=== PATIENT | male | born 1965 | race Caucasian/White ===

== ENCOUNTER 2021-03-10 22:45 | Inpatient (IN) | payer MEDICAID, SELFPAY ==
[2021-03-10 23:00] VITALS: BP 162/89; PULSE 77; RESP 20; TEMP 36.5; O2SAT 95
[2021-03-10 23:46] VITALS: BMI 32.3
[2021-03-11 01:26] LABS: Bedside Glucose 167 mg/dL (70-110)
[2021-03-11] MEDS: OXcarbazepine 600 MG Tablet PO ×3 (05:33→22:22)
[2021-03-11 05:43] LABS: Absolute Lymphocyte Count 1.53 X10^3/uL (0.83-4.51); Absolute Neutrophil Count 7.4 X10^3/uL (2.0-7.7); Basophil% 0.9 % (0-1); Eosinophil# 1.01 X10^3/uL; Eosinophils% 9.3 % (0-5); Hematocrit 41.5 % (40-54); Hemoglobin 13.5 g/dL (13.0-16.5); Lymphocyte # 1.53 X10^3/ul (0.83-4.51); Mean Corp Hgb Conc 32.5 g/dL (32-36); Mean Corpuscular Hgb 30.2 pg (27.0-32.0); Mean Corpuscular Volume 92.8 fL (80-94); Mean Platelet Vol. 9.7 fl (6.2-12.0); Monocyte# 0.85 X10^3/uL; Monocyte% 7.8 % (0-10); NRBC Flagged by Analyzer 0 % (0-5); Neutrophil # 7.37 X10^3/uL (2.7-7.7); Neutrophil % 67.7 % (47-70); Platelet Count 242 K/mm3 (150-450); RBC Distribution Width CV 12.8 % (11.6-14.6); RBC Distribution Width SD 43.5 fl (35.1-43.9); Red Blood Count 4.47 M/mm3 (4.6-6.2); White Blood Count 10.9 K/mm3 (4.4-11.0)
[2021-03-11 06:15] LABS: ALB/GLOB Ratio 0.9 RATIO (0.9-2.4); AST(SGOT) 12 U/L (15-37); Alanine Aminotransfer ALT/SGPT 27 U/L (16-61); Albumin, Serum 3.3 g/dL (3.2-5.0); Alkaline Phosphatase 107 U/L (45-117); Anion Gap 4 (5-15); BUN 16 mg/dL (7-18); BUN/Creat Ratio 15.7 RATIO (10-20); Calcium,Total 8.7 mg/dL (8.5-10.1); Chloride 107 mmol/L (98-107); Creatinine, Serum 1.02 mg/dL (0.70-1.30); EST Glomerular Filtration Rate 80 mL/min (>60); Est Glom Filt Rate - Afr Amer 97 mL/min (>60); Estimated Creatinine Clearance 86.13 ml/min; Globulin 3.6 g/dL (2.2-4.2); Glucose 205 mg/dL (74-106); Magnesium 2.3 mg/dL (1.6-2.6); Phosphorus 3.4 mg/dL (2.5-4.9); Potassium 3.6 mmol/L (3.5-5.1); Protein, Total 6.9 g/dL (6.4-8.2); Sodium Level 137 mmol/L (136-145)
[2021-03-11 06:30] LABS: Bedside Glucose 204 mg/dL (70-110)
[2021-03-11 07:50] VITALS: BP 151/75; PULSE 76; RESP 16; TEMP 36.2; O2SAT 94
[2021-03-11] MEDS: Clobetasol Propionate 0.05% Cream 1 APPLIC TOPICAL ×2 (08:07→22:30)
[2021-03-11 08:08] VITALS: BP 151/75; PULSE 76
[2021-03-11 08:08] LABS: Hemoglobin A1c 7.4 % (3.8-5.6)
[2021-03-11] MEDS: Glimepiride 4 MG Tablet 8 MG PO (08:08)
[2021-03-11] MEDS: amLODIPine 10 MG Tablet PO (08:08)
[2021-03-11] MEDS: lamoTRIgine 100 MG Tablet PO ×2 (08:08→22:23)
[2021-03-11] MEDS: Pioglitazone Hydrochloride 30 MG Tablet PO (08:08)
[2021-03-11] MEDS: Senna/Docusate Sodium 1 Tablet 2 TABLET PO ×2 (08:08→22:22)
[2021-03-11] MEDS: metFORMIN HCl 1,000 MG Tablet 1000 MG PO ×2 (08:08→16:33)
[2021-03-11] MEDS: Aspirin 81 MG TAB.CHEW PO (08:08)
[2021-03-11] MEDS: Lisinopril 40 MG Tablet PO (08:08)
[2021-03-11] MEDS: Metoprolol Tartrate 25 MG Tablet PO ×2 (08:08→22:23)
[2021-03-11] MEDS: Clopidogrel Bisulfate 75 MG Tablet PO (08:11)
[2021-03-11] MEDS: Gabapentin 600 MG Tablet PO ×2 (08:11→22:23)
[2021-03-11] MEDS: Tamsulosin HCl 0.4 MG Capsule PO (08:12)
--- NOTE | 2021-03-11 09:49 | HP.PCM_ITS ---
HPI - General General Date of Admission: 03/10/21 HPI Narrative CLARICE RIVER, is a 56 YO M with a PMH of CVA, HTN, DM II, carotid stenosis, obesity, BPH, dyslipidemia and seizures who was scheduled for a routine follow up CTB and neck on 03/07/21. He presented to the hospital in his normal state of health, checked in and then went to sit and wait to be called. Staff found him slumped over in a chair. He was taken to the ED and was noted to have left gaze preference, R right hemiparesis and aphasia. The initial NIHSS score was 21. A noncontrasted CT brain showed old areas of encephalomalacia in the left hemisphere. CTA of the head and neck showed a loss of parikh?white differentiation in the left posterior frontal lobe consistent with a known left MCA occlusion. He was given TPA. He had a CTP which showed left MCA distribution ischemia with ischemic penumbra involving the left frontal and parietal lobes but sparing the majority of the left temporal lobe. There was no core infarct. Thrombectomy was attempted but, there was no thrombus present. 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 He had a good result with TPA and the post TPA NIHSS was 9. He has some mild weakness on the right side but, the primary deficit is persistent severe dysarthria and aphasia. He was evaluated by PT/OT/ST and acute inpt rehab was recommended. He was transferred to the inpt acute rehab unit at [facility] on 03/10/21 for 3 hours of therapy daily to restore function/independence at or near his prior level of function. He follows with a Dr. Chandra for diabetes management. He finally got insulin but, has not been taking it because he has no syringes. He is also on 3 oral medications including high dose Metformin, pioglitazone and Amaryl. Afebrile VSS-blood pressure has ranged from 151/75-162/89 since admission. Heart rate is within normal limits. Maintaining appropriate oxygen saturation on RA-94 to 95% Discussed with nursing - no problems that need addressed Medication list reviewed. All lab was personally reviewed. CBC is significant for an increased eosinophil count at 9.3%. Hemoglobin A1c is 7.4%. [facility] Medical History (Updated 03/11/21 @ 20:[address] Joanna Her DO) BPH (benign prostatic hyperplasia) Carotid stenosis, right COPD exacerbation Dyslipidemia History of CVA (cerebrovascular accident) History of seizure HTN (hypertension) Obesity (BMI 30.0-34.9) Physical debility Tobacco dependence Type 2 diabetes mellitus not at goal Home Medications albuterol sulfate [Proventil HFA] 2 puff INHALATION Q4H PRN PRN 03/11/21 [History Last Taken Unknown] albuterol sulfate [Proventil] 2.5 mg INHALATION Q6H PRN 03/11/21 [History Last Taken Unknown] amlodipine 10 mg PO DAILY 03/11/21 [History Last Taken Unknown] aspirin 81 mg PO DAILY 03/11/21 [History Last Taken Unknown] atorvastatin 40 mg PO QHS 03/11/21 [History Last Taken Unknown] clobetasol [Temovate] 1 applic TOPICAL BID 03/11/21 [History Last Taken Unknown] clonidine 1 patch TRANSDERMAL QWEEK 03/11/21 [History Last Taken Unknown] clopidogrel 75 mg PO DAILY 03/11/21 [History Last Taken Unknown] cyclobenzaprine [Flexeril] 5 mg PO QHS PRN 03/11/21 [History Last Taken Unknown] gabapentin 600 mg PO BID 03/11/21 [History Last Taken Unknown] glimepiride 8 mg PO BREAKFAST 03/11/21 [History Last Taken Unknown] insulin glargine 30 unit SUBCUT DAILY 03/11/21 [History Last Taken Unknown] lamotrigine 100 mg PO BID 03/11/21 [History Last Taken Unknown] lisinopril 40 mg PO DAILY 03/11/21 [History Last Taken Unknown] metformin 1,000 mg PO BIDCM 03/11/21 [History Last Taken Unknown] metoprolol tartrate 25 mg PO BID 03/11/21 [History Last Taken Unknown] nicotine 1 patch TRANSDERMAL DAILY 03/11/21 [History Last Taken Unknown] oxcarbazepine [Trileptal] 600 mg PO TID 03/11/21 [History Last Taken Unknown] pioglitazone [Actos] 30 mg PO DAILY 03/11/21 [History Last Taken Unknown] tamsulosin [Flomax] 0.4 mg PO DAILY 03/11/21 [History Last Taken Unknown] Allergy/AdvReac Type Severity Reaction Status Date / Time Penicillins Allergy Rash Verified 03/10/21 23:56 Family History (Updated 03/11/21 @ 20:[address] Joanna Her DO) Mother , Lung CA Cancer Brother Suicide Other CAD (coronary artery disease) CVA (cerebral vascular accident) Diabetes Heart disease Hypertension Myocardial infarction Family History no significant family his Social History (Updated 03/11/21 @ 20:[address] Joanna Her DO) household members: none current occupational status: disabled Smoking Status: Heavy Smoker (>10/day) Tobacco: How many years used: 43 how long ago did patient quit smoking: He did not quit and he smokes 3 packs/day now quit status: considering quitting ROS Constitutional Constitutional: Reports weakness; Denies anorexia, change in weight, chills, fatigue, fever(s) or night sweats Eyes Eyes: Reports blurry vision right; Denies change in vision, eye pain or loss of vision ENT HEENT: Denies abnormal hearing, dysphagia, headache(s), hearing loss, nasal congestion or sore throat Cardiovascular Cardiovascular: Denies chest pain, edema, lightheadedness, orthopnea, palpitations, paroxysmal nocturnal dyspnea or syncope Respiratory/Chest Respiratory/Chest: Reports shortness of breath with exertion and other Details: He is inactive and does not exercise and he is smoking 3 PPD of cigarettes. ; Denies cough, dyspnea, shortness of breath at rest or wheezing Gastrointestinal Gastrointestinal: Denies abdominal pain, constipation, diarrhea, dyspepsia, hematemesis, hematochezia, nausea or vomiting Genitourinary Genitourinary: Denies dysuria, hematuria, nocturia, urinary frequency, urinary hesitancy, urinary incontinence or urinary urgency Musculoskeletal Musculoskeletal: Denies back pain, joint pain, joint swelling or neck pain Integumentary Integumentary: Denies jaundice Neurologic Neurologic: Reports focal weakness, memory loss and weakness; Denies confusion, disequilibrium, dizziness, headache(s), numbness, paresthesias, radicular pain, seizure-like activity, seizures, syncope or tremor(s) Psychiatric Psychiatric: Denies anxiety, depression, homicidal ideation or suicidal ideation Endocrine Endocrinology: Denies change in body appearance, polydipsia or polyuria Hematologic/Lymphatic Hematologic/Lymphatic: Denies easy bleeding, easy bruising or lymphadenopathy Allergic/Immunologic Allergic/Immunologic: Denies rhinitis, eczemia or asthma Vital Signs Vital Signs Vital Signs: 03/10/21 23:00 03/11/21 03:54 03/11/21 07:50 Temperature 97.7 F L 97.1 F L Temperature Source Temporal Oral Pulse Rate 77 76 Respiratory Rate 20 H 16 Respiratory Effort Normal Non-Labored Respiratory Depth Normal Respiratory Pattern Normal Blood Pressure 162/89 H 151/75 H Blood Pressure Mean 113 100 Blood Pressure Source Monitor Monitor Blood Pressure Position Semi-Fowlers Semi-Fowlers Blood Pressure Location Left Arm Left Arm Pulse Ox 95 94 Oxygen Delivery Method Room Air Room Air 03/11/21 08:08 Temperature Temperature Source Pulse Rate 76 Respiratory Rate Respiratory Effort Respiratory Depth Respiratory Pattern Blood Pressure 151/75 H Blood Pressure Mean Blood Pressure Source Blood Pressure Position Blood Pressure Location Pulse Ox Oxygen Delivery Method Weight Weight: 231 lb 14.821 oz Body Mass Index (BMI) 32.3 Indicators for Scoring Admitted with or Primary Diagnosis of CVA/Stroke: Yes Hx of CVA/Stroke: Yes Modified [place] Score MRS Score at time of Evaluation: 4-Moderate/severe disability NIHSS NIHSS 1a. Level of Consciousness: Alert; keenly responsive 1b. LOC Questions: Answers BOTH questions correctly. 1c. LOC Commands: Performs both tasks correctly. 2. Best Gaze: Normal 3. Visual: No visual loss 4. Facial Palsy: Partial paralysis (total or near-total paralysis of lower face) (can not raise the R eyebrow but this is residual from the prior stroke in 2018) 5a. Left Arm: No drift; arm holds 90 (or 45) degrees for full 10 seconds 5b. Right Arm: No drift; arm holds 90 (or 45) degrees for full 10 seconds (the arm does not drift but, he has weak extension of the wrist and a weak hand grasp and decreased motor coordination) 6a. Left Leg: No drift; leg holds 30-degree position for full 5 seconds 6b. Right Leg: Drift; leg falls by the end of 5-seconds, but does not hit bed 7. Limb Ataxia: Absent 8. Sensory: Normal; no sensory loss 9. Best Language: [id number] aphasia; 10. Dysarthria: [id number] dysarthria; 11. Extinction and Inattention: No abnormality Total: 5 Stroke Questions Stroke Team Activated: No Physical Exam Const alert, oriented x3, no apparent distress and well nourished General Appearance: cooperative and well developed HEENT normocephalic, head/scalp atraumatic and moist oral mucous membranes Eyes PERRL and EOMs intact bilaterally Neck No nuchal rigidity and no carotid bruits General: trachea midline Chest Chest: symmetrical chest wall rise Resp clear to auscultation bilaterally Resp Narrative: very diminished air exchange Effort and Inspection: able to speak in complete sentences Cardio regular rate, regular rhythm, S1 normal heart sound, S2 normal heart sound, no murmurs, no rub and no gallops Cardio Narrative: no ectopy GI normal to inspection, nondistended, normoactive bowel sounds, soft to palpation, non-tender and non-distended GI Narrative: No guarding with palpation Extremity no calf tenderness and no pedal edema Extremity Narrative: No clubbing and no cyanosis Skin General Skin Exam: no breakdown Rashes: no rashes Neuro Neuro Narrative: See the NIHSS coring Psych thought process normal, cooperative and affect normal Results Lab / Micro Data Result Diagrams: 03/11/21 05:32 03/11/21 05:32 Labs: Laboratory Results - last 24 hr 03/11/21 01:22: POC Glucose 167 H 03/11/21 05:32: WBC 10.9, RBC 4.47 L, Hgb 13.5, Hct 41.5, MCV 92.8, MCH 30.2, MCHC 32.5, RDW Std Deviation 43.5, RDW Coeff of Tessa 12.8, Plt Count 242, MPV 9.7, Immature Gran % (Auto) 0.300, Neut % (Auto) 67.7, Lymph % (Auto) 14.0 L, [place] % (Auto) 7.8, Eos % (Auto) 9.3 H, Baso % (Auto) 0.9, Absolute Neuts (auto) 7.4, Absolute Lymphs (auto) 1.53, Nucleated RBC % 0 03/11/21 05:32: Sodium 137, Potassium 3.6, Chloride 107, Carbon Dioxide 26.0, Anion Gap 4 L, BUN 16, Creatinine 1.02, Estim Creat Clear Calc 86.13, Est GFR (MDRD) Af Amer 97, Est GFR (MDRD) Non-Af 80, BUN/Creatinine Ratio 15.7, Glucose 205 H, Calcium 8.7, Phosphorus 3.4, Magnesium 2.3, Total Bilirubin 0.40, AST 12 L, ALT 27, Alkaline Phosphatase 107, Total Protein 6.9, Albumin 3.3, Globulin 3.6, Albumin/Globulin Ratio 0.9 03/11/21 05:32: Hemoglobin A1c 7.4 H 03/11/21 06:11: POC Glucose 204 H Assessment & Plan Assessment/Plan (1) Physical debility: (2) Recent cerebrovascular accident (CVA): (3) Aphasia: (4) Dysarthria: (5) Right hemiparesis: (6) Tobacco dependence: (7) Obesity (BMI 30.0-34.9): (8) Carotid stenosis, right: (9) BPH (benign prostatic hyperplasia): (10) History of seizure: (11) Dyslipidemia: (12) Type 2 diabetes mellitus not at goal: (13) HTN (hypertension): (14) Low HDL (under 40): (15) Hypertriglyceridemia: (16) COPD exacerbation: PLAN: PLAN PT for gait stability OT for ADL's ST for evaluation Analgesics as needed Bowel protocol Fall precautions Assess for Anxiety/Depression GI prophylaxis not necessary-he has no history of peptic ulcers disease or GERD and he has no symptoms currently DVT prophylaxis with enoxaparin 40 mg subcu daily Follow up with neurology and PCP following DC from IP Rehab AM lab including CMP, CBC, Mag, HGA1C, lipid profile and Phos Smoking cessation counselling was given. He has a nicotine patch which he tells me is helping with the cravings. With his hx of 2 strokes now and uncontrolled DM II will consider adding Victoza LDL is < 50 which is the goal now that he has had 2 strokes He may benefit from Adult day care if it is available in his area. He is very inactive and bored so he sits around and smokes 3 PPD of cigarettes Follow up appts: Dr. Sylvia Francois MD, [facility] [phone] Charges/Coding Visit Charges Inpatient E&M: 16218 Init Hosp L3
--- NOTE | 2021-03-11 10:39 | PCM.RU.PYE ---
Admission Information Primary Diagnosis:: Debility secondary to recent left MCA ischemic CVA with dysarthria, aphasia, right-sided weakness. Status Changes from Prescreening?: No changes Identified Actual Problem List:: Cognitve Impr/Memory Loss, Mobility Impaired, Diabetes, Hyperglycemia and Alteration-Leisure Activ. Potential Problem List:: DVT, Bleeding, Infection, UTI, Aspiration, Falls, Skin Integrity and Depression Risk of Complications DVT: LMWH and IFEANYI Hose Bleeding: Monitor Lab Values, Nursing to Teach Precautions for anti-coagulation therapy., Wound, if applicable, to be assessed every shift. and Stroke patients assessed for lethargy or change in status. Infection: Clinical Staff to Monitor for S/S of infection: and S/S of infection include fever, redness, warmth, etc. Urinary Tract Infection: Monitor for frequency, burning, discomfort, or incontinence. and Nursing will obtain urine sample for urinalysis and C&S when ordered. Aspiration: Clinical staff will monitor for coughing, drooling, congestion., Speech will evaluate swallowing and dsyphasia. and Nursing will monitor patient swallowing during meals. Falls: Patient will be evaluated for Fall Precautions and Patient will be placed on Fall Precautions as indicated per protocol. Skin Breakdown: Nursing will assess skin daily using assessment tool. and Nursing will place on Skin Breakdown Precautions as indicated. Pain: Clinical staff will assess patient's pain level per protocol., Medications will be given, if needed, and the pain level reassessed. and Other methods: Massage, distraction, decrease stimulus, etc. used PRN. Plan of Care Patient requires physician specializing in physical medicine and rehab oversight to provide close medical supervision of rehab issues including: Pain Management, Sleep Problems, Bowel and Bladder, Medical and co-morbidity Management, DVT prophylaxis, Rehabilitation Leadership and Coordination of treatment team Patient needs Physical Therapy: For a minimum of 1 hour and At least 5 out of 7 days Patient needs Physical Therapy to improve:: Mobility, Strengthening, Transfers, Stretching, ROM, Endurance, Stairs, Gait and Balance Patient needs Occupational Therapy: For a minimum of 1 hour and At least 5 out of 7 days Patient needs Occupational Therapy to improve ADL's incl.: Eating, Grooming, Bathing, Dressing, Toileting, Toilet transfers, Community Reintegration, Higher functioning activities, Household tasks, Adaptive Equipment, Splinting and Other activities as determined Patient requires speech therapy: For a minimum of 1 hour and At least 5 out of 7 days Patient requires speech therapy for: Swallowing, Cognition, Language Skills and Compensatory Strategies Patient requires 24/7 Rehabilitation Nursing for: Pain Issues, Identifying and preventing risk factors, Monitoring and reporting current medical conditions, Assisting with ambulation, transfer, and all ADL's, Teaching patients about disease process and medications, Family teaching, Providing safe environment, Bowel and Bladder Issues, Skin integrity and Medication Management Patient needs Machine Operator Slitter Technician/ Case Management for: Discharge Planning, Arranging Home Equipment or Services and Family Interventions Patient needs Dietary and Nutrition Services for: Adequate Nutrition, Nutritional Supplements and Nutritional Education Goals Patient will remain: free from falls and or injury at time of discharge. Patient will perform bed mobility at: MOD I level of assist. Patient will complete transfers from bed to chair at: MOD I level of assist. Patient will ambulate: with LRD and - (300 feet with a standard cane at mod I) Patient will complete upper body dressing at: MOD I level of assist. Patient will complete lower body dressing at: MOD I level of assist. Patient will complete toileting at: MOD I level of assist. Patient will perform bathing at: - (Supervision with a shower chair and grab bars) Patient will complete grooming at: MOD I level of assist. Patient will complete home management skills at: MOD I level of assist. Patient will achieve: - (1 curb step and ascend/descend 1 flight of stairs) Patient will have pain level of: of 3 or less Patient's skin will: remain intact Patient will receive: adequate nutrition. Discharge Planning Pt Prognosis for Sig. Practical Improv. w/in Reasonable Time: Good Estimated Length of stay (days): 14 Anticipated D/C Destination: Home with Home Health Was Preadmission Assessment Accurate?: Yes
[2021-03-11 11:21] LABS: Bedside Glucose 215 mg/dL (70-110)
[2021-03-11 11:22] LABS: Cholesterol 149 mg/dL (200); High Density Lipoprotein 32 mg/dL; Triglycerides 340 mg/dL; Very Low Density Lipoprotein 68 mg/dL (5-40)
[2021-03-11] MEDS: Enoxaparin 40 MG/0.4 ML Syringe SC (12:18)
[2021-03-11 16:05] LABS: Bedside Glucose 81 mg/dL (70-110)
--- NOTE | 2021-03-11 16:10 | CASEMGMT ---
Addendum entered by Marguerite Villagomez 03/14/21 11:35: Addendum from 03/11 - completed PHQ-9. scored 14/27 - moderately depressive. Explained pt's mood further and the stroke support group. Pt reports overall, his mood is stable and has good outlook on life. Pt agreeable to be added to stroke support group mailing. Completed Palliative Care screening tool. Pt qualifies. Order entered. Referral made to [facility]. Original Note: Social Work Met with patient for initial assessment. Pt confirmed full code. Discussed completing advanced directives. Pt agreeable to LW, but will speak with brother to see if he is willing to be HCPOA. SW to complete prior to DC. Pt discussed past alcohol and criminal hx. See SW assessment for further details. Explained [employer] insurance with NRD 2/3 and continued stay is not guaranteed with each review. The goal is for pt to return home alone with services from aides. However, pt cannot recall what agency the aides are through or if he has a rn field case manager that coordinated the aides. Pt did give permission to speak with brother for discharge planning and progress updates. SW to continue to follow. Marguerite Villagomez, EMERSON GEOTHERMAL INSTALLER
[2021-03-11 19:33] VITALS: BP 160/90; PULSE 70; RESP 16; TEMP 36.6; O2SAT 95
[2021-03-11 21:31] LABS: Bedside Glucose 144 mg/dL (70-110)
[2021-03-11 22:23] VITALS: BP 160/90; PULSE 70
[2021-03-11] MEDS: Atorvastatin Calcium 40 MG Tablet PO (22:23)
[2021-03-11] MEDS: Magnesium Hydroxide 30 ML UDC PO (22:30)
[2021-03-12] MEDS: OXcarbazepine 600 MG Tablet PO ×3 (06:00→22:00)
[2021-03-12] MEDS: Aspirin 81 MG TAB.CHEW PO (08:00)
[2021-03-12] MEDS: metFORMIN HCl 1,000 MG Tablet 1000 MG PO ×2 (08:00→17:00)
[2021-03-12] MEDS: Glimepiride 4 MG Tablet 8 MG PO (08:00)
[2021-03-12 10:00] VITALS: PULSE 66
[2021-03-12] MEDS: Lisinopril 40 MG Tablet PO (10:00)
[2021-03-12] MEDS: Enoxaparin 40 MG/0.4 ML Syringe SC (10:00)
[2021-03-12] MEDS: Clobetasol Propionate 0.05% Cream 1 APPLIC TOPICAL ×2 (10:00→22:00)
[2021-03-12] MEDS: Tamsulosin HCl 0.4 MG Capsule PO (10:00)
[2021-03-12] MEDS: amLODIPine 10 MG Tablet PO (10:00)
[2021-03-12] MEDS: Gabapentin 600 MG Tablet PO ×2 (10:00)
[2021-03-12] MEDS: Clopidogrel Bisulfate 75 MG Tablet PO (10:00)
[2021-03-12] MEDS: lamoTRIgine 100 MG Tablet PO ×2 (10:00→22:00)
[2021-03-12] MEDS: Pioglitazone Hydrochloride 30 MG Tablet PO (10:00)
[2021-03-12] MEDS: Metoprolol Tartrate 25 MG Tablet PO ×2 (10:00→22:00)
[2021-03-12] MEDS: Senna/Docusate Sodium 1 Tablet 2 TABLET PO ×2 (10:00→22:00)
[2021-03-12] MEDS: Magnesium Hydroxide 30 ML UDC PO (12:00)
[2021-03-12 19:24] LABS: Bedside Glucose 143 mg/dL (70-110)
[2021-03-12 19:25] LABS: Bedside Glucose 250 mg/dL (70-110)
[2021-03-12 19:25] LABS: Bedside Glucose 158 mg/dL (70-110)
[2021-03-12 21:30] VITALS: BP 132/67; PULSE 79; RESP 16; TEMP 36.5; O2SAT 94
[2021-03-12 22:00] VITALS: PULSE 79
[2021-03-12] MEDS: Atorvastatin Calcium 40 MG Tablet PO (22:00)
[2021-03-12 22:41] LABS: Bedside Glucose 105 mg/dL (70-110)
--- NOTE | 2021-03-13 03:33 | NURSING ---
Reviewed and agree with POLO COACH note and assessment.
[2021-03-13] MEDS: OXcarbazepine 600 MG Tablet PO ×3 (05:46→20:33)
[2021-03-13 06:36] LABS: Bedside Glucose 194 mg/dL (70-110)
[2021-03-13] MEDS: Glimepiride 4 MG Tablet 8 MG PO (08:12)
[2021-03-13] MEDS: Lisinopril 40 MG Tablet PO (08:12)
[2021-03-13 08:13] VITALS: PULSE 65
[2021-03-13] MEDS: Aspirin 81 MG TAB.CHEW PO (08:13)
[2021-03-13] MEDS: Pioglitazone Hydrochloride 30 MG Tablet PO (08:13)
[2021-03-13] MEDS: Metoprolol Tartrate 25 MG Tablet PO ×2 (08:13→20:32)
[2021-03-13] MEDS: lamoTRIgine 100 MG Tablet PO ×2 (08:13→20:33)
[2021-03-13] MEDS: amLODIPine 10 MG Tablet PO (08:13)
[2021-03-13] MEDS: metFORMIN HCl 1,000 MG Tablet 1000 MG PO ×2 (08:14→17:10)
[2021-03-13] MEDS: Enoxaparin 40 MG/0.4 ML Syringe SC (08:14)
[2021-03-13] MEDS: Gabapentin 600 MG Tablet PO ×2 (08:14→20:33)
[2021-03-13] MEDS: Clobetasol Propionate 0.05% Cream 1 APPLIC TOPICAL ×2 (08:15→20:31)
[2021-03-13] MEDS: Tamsulosin HCl 0.4 MG Capsule PO (08:16)
[2021-03-13] MEDS: Senna/Docusate Sodium 1 Tablet 2 TABLET PO (08:16)
[2021-03-13] MEDS: Clopidogrel Bisulfate 75 MG Tablet PO (09:49)
[2021-03-13 09:58] VITALS: BP 155/73; PULSE 65; RESP 18; TEMP 36.2; O2SAT 96
[2021-03-13 11:30] LABS: Bedside Glucose 189 mg/dL (70-110)
[2021-03-13 15:06] VITALS: O2SAT 94
[2021-03-13 16:36] LABS: Bedside Glucose 121 mg/dL (70-110)
[2021-03-13 20:30] VITALS: BP 145/69; PULSE 69; RESP 17; TEMP 36.6; O2SAT 96
[2021-03-13 20:32] VITALS: BP 145/69; PULSE 69
[2021-03-13] MEDS: Atorvastatin Calcium 40 MG Tablet PO (20:33)
[2021-03-13 21:06] LABS: Bedside Glucose 151 mg/dL (70-110)
--- NOTE | 2021-03-13 23:10 | NURSING ---
2300 pt rings and wanted nurse to come to the room, pt pulled down his pants and was noted to have hives on his buttocks, hip, and thigh. pt was very anxious regarding this , rn to look at area. pt stated that he was itching. 2315 rn to call hospitalist and new order for received for benadryl iv to be given. bp was 151/85, ap 64, and spo2 was 97% on ra pt denied sob and is alert and oriented x's 3
[2021-03-13 23:15] VITALS: BP 151/85; PULSE 64; O2SAT 97
[2021-03-13] MEDS: DiphenhydrAMINE 50 MG/ML Syringe 25 MG IV (23:39)
[2021-03-14 05:00] VITALS: BMI 32.3
[2021-03-14] MEDS: OXcarbazepine 600 MG Tablet PO ×3 (06:23→20:49)
[2021-03-14 06:59] VITALS: BP 165/85; PULSE 59; RESP 16; TEMP 36.3; O2SAT 96
[2021-03-14 07:05] LABS: Bedside Glucose 110 mg/dL (70-110)
[2021-03-14 07:24] VITALS: O2SAT 96
[2021-03-14] MEDS: Clobetasol Propionate 0.05% Cream 1 APPLIC TOPICAL ×2 (08:17→20:49)
[2021-03-14] MEDS: Pioglitazone Hydrochloride 30 MG Tablet PO (08:18)
[2021-03-14] MEDS: Clopidogrel Bisulfate 75 MG Tablet PO (08:18)
[2021-03-14] MEDS: metFORMIN HCl 1,000 MG Tablet 1000 MG PO ×2 (08:18→16:18)
[2021-03-14] MEDS: Lisinopril 40 MG Tablet PO (08:18)
[2021-03-14] MEDS: amLODIPine 10 MG Tablet PO (08:18)
[2021-03-14] MEDS: Glimepiride 4 MG Tablet 8 MG PO (08:18)
[2021-03-14] MEDS: Gabapentin 600 MG Tablet PO ×2 (08:18→20:50)
[2021-03-14] MEDS: Aspirin 81 MG TAB.CHEW PO (08:18)
[2021-03-14 08:19] VITALS: BP 165/85; PULSE 66
[2021-03-14] MEDS: Tamsulosin HCl 0.4 MG Capsule PO (08:19)
[2021-03-14] MEDS: Metoprolol Tartrate 25 MG Tablet PO ×2 (08:19→20:50)
[2021-03-14] MEDS: lamoTRIgine 100 MG Tablet PO ×2 (08:19→20:50)
[2021-03-14] MEDS: DiphenhydrAMINE 50 MG/ML Syringe 25 MG IV ×2 (08:20→15:46)
[2021-03-14] MEDS: Enoxaparin 40 MG/0.4 ML Syringe SC (08:20)
--- NOTE | 2021-03-14 09:57 | PCM.PN.BLA ---
Progress Note Chau was seen on team rounds today. There was no family or friends present to participate. Afebrile VSS-blood pressures are mildly elevated since admission and have ranged from 145/60 9-1 60/90. Heart rate is normal. Maintaining appropriate oxygen saturation on RA Oral intake is good Discussed with nursing - He had hives over the weekend and the night hospitalist treated with 3 doses of IV Benadryl 25 mg every 8 hours Reviewed the PT/OT/ST notes Medication list reviewed. The blood sugar record was reviewed. Blood sugars are well controlled with no hypoglycemia on a calorie controlled diet. The dietitian's consult was reviewed and 2000 ivone is appropriate for this gentleman at this time. He denies chest pain, shortness of breath, palpitations, lightheadedness, cough. Physical Exam Const alert, oriented x3 and no apparent distress Constitutional Narrative: Struggles with word finding at times. The ST feels this is a speech apraxia rather than aphasia. General Appearance: cooperative and comfortable Eyes PERRL, EOMs intact bilaterally, conjunctivae normal and no scleral icterus Resp clear to auscultation bilaterally Resp Narrative: Diminished, not tachypneic, able to speak in complete sentences. Not tachypneic with exertion either. Cardio regular rate, regular rhythm, no murmurs and no gallops GI normal to inspection, nondistended, normoactive bowel sounds and soft to palpation Extremity no calf tenderness and no pedal edema Skin General Skin Exam: no breakdown Rashes: no rashes Psych affect normal Assessment & Plan Assessment/Plan (1) HTN (hypertension): (2) Hypertriglyceridemia: (3) Low HDL (under 40): (4) Physical debility: (5) Obesity (BMI 30.0-34.9): (6) Tobacco dependence: (7) Right hemiparesis: (8) Apraxia of speech: (9) Recent cerebrovascular accident (CVA): (10) Type 2 diabetes mellitus not at goal: PLAN: 1. Add hydrochlorothiazide/triamterene 25 mg / 37.5 mg-1 daily 2. Recheck potassium and magnesium in 3 to 4 days 3. Continue to monitor blood pressure closely with a goal of less than 135/80. 4. Will check with the retail pharmacy if [employer] would cover Victoza or another drug in the category since he has now had 2 strokes. 5. Continue therapy Visit Charges Inpatient E&M: 18958 Subs Hosp L2
[2021-03-14 11:15] LABS: Bedside Glucose 170 mg/dL (70-110)
[2021-03-14] MEDS: Triamterene 37.5MG/Hctz 25MG Capsule 1 CAP PO (11:38)
--- NOTE | 2021-03-14 13:43 | CASEMGMT ---
Social Work IDT met with patient for Team meeting. Left message for brother to advise of meeting discussion. Discussed patient's progress in PT/OT/ST and nursing. Explained [employer] insurance with NRD 2/3 and continued stay is not guaranteed for each review. Pt lives at home alone and has aides visiting to assist 3x/wk but unsure through which agency. Pt expressed concern about being past due on rent for apartment. Offered to contact complex - pt agreed. Will ReTeam next week. Pt resides at [facility] [phone]. Left message on their answering machine requesting a return phone call. SW to continue to follow. Marguerite Villagomez, MANIFOLD OPERATOR UTILITY WORKER [employer]
[2021-03-14] MEDS: 0.9% Saline Lock 10 ML Syringe IV ×2 (15:47→20:51)
[2021-03-14 16:16] LABS: Bedside Glucose 71 mg/dL (70-110)
[2021-03-14 16:33] VITALS: BMI 32.3
--- NOTE | 2021-03-14 17:10 | CHAPLAIN ---
Type of Pastoral Visit _x__ Initial Visit ___ Follow-up Visit ___ On-call Visit ___ General Patient Visit ___ Spiritual Assessment ___ Family Conference ___ Bereavement ___ Rapid Response ___ Code Blue ___ Other (describe below) Pastoral Care Referral From _x__ Patient ___ Family ___ Nurse ___ Physician ___ Director Biostatistics ___ Chain Link Fence Installer ___ Other (describe below) Sacrament/Intervention _x__ Active listening ___ Anointing ___ Yazdanism ___ Bereavement ___ Communion ___ Joyce exploration ___ _x__ Life review _x__ Prayer ___ Reconciliation ___ Sacrament of Sick _x__ Supportive presence ___ Wedding ___ Other (describe below) Pastoral Comments patient states tired of all these strokes and I have to quit smoking which is where the conversation goes initially; eventually into more life review and offer of ongoing support; pt open to prayer
[2021-03-14 19:38] VITALS: BP 181/94; PULSE 67; RESP 18; TEMP 36.6; O2SAT 96
[2021-03-14 20:09] VITALS: BP 137/79; PULSE 65
[2021-03-14] MEDS: Senna/Docusate Sodium 1 Tablet 2 TABLET PO (20:49)
[2021-03-14 20:50] VITALS: BP 137/79; PULSE 65
[2021-03-14] MEDS: Atorvastatin Calcium 40 MG Tablet PO (20:50)
[2021-03-14 21:31] LABS: Bedside Glucose 79 mg/dL (70-110)
[2021-03-15] MEDS: OXcarbazepine 600 MG Tablet PO ×3 (06:01→21:28)
[2021-03-15 06:56] LABS: Bedside Glucose 121 mg/dL (70-110)
[2021-03-15 07:21] VITALS: BP 133/80; PULSE 67; RESP 16; TEMP 36.4; O2SAT 95
[2021-03-15 07:25] VITALS: O2SAT 97
[2021-03-15] MEDS: Glimepiride 4 MG Tablet 8 MG PO (07:52)
[2021-03-15] MEDS: Pioglitazone Hydrochloride 30 MG Tablet PO (07:52)
[2021-03-15] MEDS: Aspirin 81 MG TAB.CHEW PO (07:52)
[2021-03-15] MEDS: metFORMIN HCl 1,000 MG Tablet 1000 MG PO ×2 (07:52→16:46)
[2021-03-15] MEDS: Triamterene 37.5MG/Hctz 25MG Capsule 1 CAP PO (07:53)
[2021-03-15] MEDS: Tamsulosin HCl 0.4 MG Capsule PO (07:53)
[2021-03-15] MEDS: lamoTRIgine 100 MG Tablet PO ×2 (07:53→21:28)
[2021-03-15 07:56] VITALS: BP 133/80; PULSE 67
[2021-03-15] MEDS: Metoprolol Tartrate 25 MG Tablet PO ×2 (07:56→21:28)
[2021-03-15] MEDS: Clobetasol Propionate 0.05% Cream 1 APPLIC TOPICAL ×2 (07:57→21:28)
[2021-03-15] MEDS: Clopidogrel Bisulfate 75 MG Tablet PO (07:57)
[2021-03-15] MEDS: Lisinopril 40 MG Tablet PO (07:57)
[2021-03-15] MEDS: Gabapentin 600 MG Tablet PO ×2 (07:57→21:28)
[2021-03-15] MEDS: Enoxaparin 40 MG/0.4 ML Syringe SC (07:57)
[2021-03-15] MEDS: amLODIPine 10 MG Tablet PO (07:59)
[2021-03-15 11:20] LABS: Bedside Glucose 191 mg/dL (70-110)
[2021-03-15] MEDS: 0.9% Saline Lock 10 ML Syringe IV ×2 (11:20→21:36)
[2021-03-15 15:01] VITALS: BMI 32.3
[2021-03-15 16:25] LABS: Bedside Glucose 104 mg/dL (70-110)
--- NOTE | 2021-03-15 18:04 | PN_ITS ---
Progress Note Afebrile VSS - after 2 doses of HCTZ/Triamterene the BP today is WNL at 133/80. Maintaining appropriate oxygen saturation on RA Oral intake is good Discussed with nursing - no problems that need addressed Reviewed the PT/OT/ST notes Medication list reviewed. Blood sugar record was reviewed and Blood sugars are controlled with no BS's < 70 and no hypoglycemic reactions. Chau denies CP, SOB, palpitations, racing heart, lightheadedness, N/V, cough, ST, rhinorrhea. He tells me that he is not sleeping well at night. 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 We talked about why he smokes and he thinks it is out of boredom. He is isolated and has only a few friends that live in the same apartment complex. They really do not do anything together. They talk in the parking lot. He leaves his apt primarily to go grocery shopping or to the doctor. He has no socialization. He has an X box and a Wii and he does this sometime. He used to lie to draw but since the strokes have affected the fine motor coordination in the R hand he does not draw anymore. We talked about an adult daycare situation he could maybe go to 1-2 times a week (like the [facility] her in [place]) and he would be interested if there is someplace where he lives he could go to. He lives in [place]. I think he is depressed but, he denies this. We talked about why people get addicted to things......cause it helps them feel better. He needs to find something other than smoking to pass the time. He is up to 3 PPD. He is alert and oriented. Still having some trouble with word finding..... he knows what he wants to say......he just can not come up with the word. Dysarthria is improving. He has a flat affect but he does make eye contact with me most of the time. Lungs - diminished throughout with no crackles or wheezes. No conversational dyspnea when he is at rest. H - somewhat distant heart sounds. Regular with no MM and no gallop no peripheral edema and no calf tenderness the rash on the back is no longer pruritic and it has faded considerably Impressions 1. BP - not adequately controlled - better with the addition of the diuretic. Will check a BMP and a mag in a couple days. 2. Suspected depression - may benefit from psychotherapy at [place] +/- medication 3. DM II - admits to not sticking to his diet at home. BS's are good on a 2000 calorie diet 4. recent CVA with hx of CVA in 2019 also. 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 5. Tobacco dependence - smoking cessation counselling given again today and will get a smoking cessation consult with RT this admission. I think adding an antidepressant and having more socialization may help him a lot 6. dysarthria, speech apraxia, R side weakness - improving with therapy so will continue. Spent 30 minutes on his care today and over 50% was in education and counselling Visit Charges Inpatient E&M: 17039 Subs Hosp L2
[2021-03-15 19:48] VITALS: BP 140/78; PULSE 74; RESP 18; TEMP 36.5; O2SAT 95
[2021-03-15 21:25] LABS: Bedside Glucose 104 mg/dL (70-110)
[2021-03-15 21:28] VITALS: BP 140/78; PULSE 74
[2021-03-15] MEDS: Atorvastatin Calcium 40 MG Tablet PO (21:28)
[2021-03-16 00:48] VITALS: BMI 32.3
[2021-03-16] MEDS: OXcarbazepine 600 MG Tablet PO ×3 (05:20→21:39)
[2021-03-16 06:06] LABS: Bedside Glucose 76 mg/dL (70-110)
--- NOTE | 2021-03-16 06:47 | NURSING ---
Reviewed and agree with FURNITURE ARRANGER assessment.
[2021-03-16] MEDS: Glimepiride 4 MG Tablet 8 MG PO (08:40)
[2021-03-16] MEDS: Pioglitazone Hydrochloride 30 MG Tablet PO (08:40)
[2021-03-16] MEDS: cloNIDine HCl 0.2 MG Patch TD (08:40)
[2021-03-16] MEDS: metFORMIN HCl 1,000 MG Tablet 1000 MG PO ×2 (08:40→18:05)
[2021-03-16] MEDS: Aspirin 81 MG TAB.CHEW PO (08:40)
[2021-03-16 08:41] VITALS: PULSE 62
[2021-03-16] MEDS: Enoxaparin 40 MG/0.4 ML Syringe SC (08:41)
[2021-03-16] MEDS: lamoTRIgine 100 MG Tablet PO ×2 (08:41→20:47)
[2021-03-16] MEDS: Triamterene 37.5MG/Hctz 25MG Capsule 1 CAP PO (08:41)
[2021-03-16] MEDS: Metoprolol Tartrate 25 MG Tablet PO ×2 (08:41→20:48)
[2021-03-16] MEDS: Tamsulosin HCl 0.4 MG Capsule PO (08:41)
[2021-03-16] MEDS: Gabapentin 600 MG Tablet PO ×2 (08:42→20:48)
[2021-03-16] MEDS: Clobetasol Propionate 0.05% Cream 1 APPLIC TOPICAL ×2 (08:42→20:48)
[2021-03-16] MEDS: amLODIPine 10 MG Tablet PO (08:42)
[2021-03-16] MEDS: Clopidogrel Bisulfate 75 MG Tablet PO (08:42)
[2021-03-16] MEDS: Lisinopril 40 MG Tablet PO (08:42)
[2021-03-16 08:57] VITALS: BP 144/76; PULSE 62; RESP 16; TEMP 36.7; O2SAT 92
--- NOTE | 2021-03-16 09:13 | CASEMGMT ---
Addendum entered by Sonia Diop 03/16/21 13:25: Social Work SW called pt's brother, let him know pt made him POA and asked for his address to mail him copies of the forms. Pt's brother Van gave SW his address, SW mailed the forms to him. SW let pt know. FERMIN Kelly LISW-S Original Note: Social Work SW met w/pt this morning, assisted in completing LW/POA forms. Pt put his brother Van Sneed as healthcare POA. SW offered to mail to pt's brother, pt agreeable but does not have his address. Pt gave SW permission to call Van to get the address. SW will call later as Van lives in [place]. SW gave pt the originals and a copy, and a copy was placed in the chart. FERMIN Kelly
[2021-03-16 11:15] LABS: Bedside Glucose 166 mg/dL (70-110)
--- NOTE | 2021-03-16 14:06 | CASEMGMT ---
Social Work Received call from social media content manager at [facility], Masha [phone], requesting updates and inquiring about lost cell phone. She will begin applying for a new phone, it's a government phone, as he needs a phone for safety at home. This worker will update her when a DC date is issued. EMERSON ReavesW
[2021-03-16] MEDS: Sertraline 50 MG Tablet PO (14:34)
--- NOTE | 2021-03-16 15:11 | CASEMGMT ---
Social Work Received call from brother and sister in law requesting updates. Provided insurance NRD 2/3, and latest therapy notes. They were also concerned about pt not having phone. Updated them on PCP SW assistance. Reminded them about Team meeting, but they are 3 hours behind [place], so offered to contact last - both appreciative. Will get them updated. SW to continue to follow. Marguerite Villagomez, MANAGER CORPORATE WOODEN BARREL MECHANIC
[2021-03-16 16:21] LABS: Bedside Glucose 201 mg/dL (70-110)
[2021-03-16 17:00] VITALS: BMI 32.3
[2021-03-16 20:40] VITALS: BP 151/94; PULSE 70; RESP 16; TEMP 36.7; O2SAT 98
[2021-03-16 20:48] VITALS: PULSE 72
[2021-03-16] MEDS: Senna/Docusate Sodium 1 Tablet 2 TABLET PO (20:48)
[2021-03-16] MEDS: Atorvastatin Calcium 40 MG Tablet PO (20:48)
[2021-03-16] MEDS: 0.9% Saline Lock 10 ML Syringe IV (20:56)
[2021-03-16 21:15] LABS: Bedside Glucose 194 mg/dL (70-110)
[2021-03-16 22:00] VITALS: PULSE 70; RESP 16
[2021-03-16 22:15] VITALS: PULSE 71; O2SAT 94
[2021-03-16 22:21] VITALS: BMI 32.3
[2021-03-17] VITALS (7 sets, daily range): BP systolic 134–211; BP diastolic 58–122; PULSE 72–77; RESP 16–20; TEMP 36.6–37; O2SAT 94–100
[2021-03-17] MEDS: OXcarbazepine 600 MG Tablet PO (05:45)
[2021-03-17 06:55] LABS: Bedside Glucose 87 mg/dL (70-110)
[2021-03-17] MEDS: Glimepiride 4 MG Tablet 8 MG PO (08:40)
[2021-03-17] MEDS: Tamsulosin HCl 0.4 MG Capsule PO (08:41)
[2021-03-17] MEDS: Aspirin 81 MG TAB.CHEW PO (08:41)
[2021-03-17] MEDS: Triamterene 37.5MG/Hctz 25MG Capsule 1 CAP PO (08:41)
[2021-03-17] MEDS: Pioglitazone Hydrochloride 30 MG Tablet PO (08:41)
[2021-03-17] MEDS: lamoTRIgine 100 MG Tablet PO (08:41)
[2021-03-17] MEDS: metFORMIN HCl 1,000 MG Tablet 1000 MG PO (08:41)
[2021-03-17] MEDS: Enoxaparin 40 MG/0.4 ML Syringe SC (08:42)
[2021-03-17] MEDS: Metoprolol Tartrate 25 MG Tablet PO (08:42)
[2021-03-17] MEDS: amLODIPine 10 MG Tablet PO (08:42)
[2021-03-17] MEDS: Clopidogrel Bisulfate 75 MG Tablet PO (08:42)
[2021-03-17] MEDS: Gabapentin 600 MG Tablet PO (08:42)
[2021-03-17] MEDS: Sertraline 50 MG Tablet PO (08:43)
[2021-03-17] MEDS: Clobetasol Propionate 0.05% Cream 1 APPLIC TOPICAL (08:43)
[2021-03-17] MEDS: Lisinopril 40 MG Tablet PO (08:43)
--- NOTE | 2021-03-17 08:50 | NURSING ---
0850- pt noted to be sitting on edge of bed vomiting. pt actively vomiting. This RN, PONY RIDE OPERATOR and GROOVER OPERATOR assist pt. pt cleaned up and lungs auscultated at this time. diminished throughout. neurological exam performed, pupils equal and reactive. continued r sided weakness- same as baseline. pt has no further complaints to staff at this time. Dr. Gonsalez called at 0858. This RN has speech therapy go in to pt room to help assess if there was a change in speech. last known well time was 729 when OT was finished working with pt and breakfast was given. 0905- speech therapy makes this RN aware that pt has increased slurring of speech, and pt complains of visual changes in right eye. 09- dr gonsalez made aware and stroke team called. 09- crash cart placed in pt room, vitals and blood glucose obtained. Dr gonsalez begins to assess NIH stroke scale. stroke team begins to arrive. 0915- report given to stroke team and pt taken off floor to CT 0925- this RN calls [facility] to give report. vital signs as follows- P-77, R-20, BP- 211/94, BS- 164. pt currently taking lovenox 40 mg, aspirin 81 mg daily, and plavix 75 mg daily. all these medications were given this morning.
--- NOTE | 2021-03-17 09:22 | CT_ITS ---
STUDY: CT HEAD STROKE PROTOCOL W/O CONTRAST INJECTION REASON FOR EXAM: Male, 56 years old. Blurred vision, sudden onset vomit RADIATION DOSAGE (If Supplied By Facility): CTDIvol = ( ) mGy, DLP = ( ) mGycm TECHNIQUE: Transaxial CT imaging of the brain was performed without administration of intravenous contrast material. Individualized dose optimization techniques were used for this CT. COMPARISON: No relevant priors. FINDINGS: Normal soft tissue structures. Normal calvarium. Focal area of decreased attenuation in the left frontoparietal lobes. This is suggestive of a subacute infarct. There is mild cerebral atrophy with widening of the extra-axial spaces and ventricular dilatation. There are areas of decreased attenuation within the white matter tracts of the supratentorial brain, consistent with microvascular disease changes. Normal basal ganglia and thalami. Normal brainstem. Normal cerebellum. There is no intracranial hemorrhage. There are no findings of an acute ischemic infarction. Atherosclerotic calcification of the vertebral arteries and cavernous portions of the internal carotid arteries bilaterally. Normal visualized paranasal sinuses. CT/STROKE Brain/Head without Cont IMPRESSION: Focal area of decreased attenuation in the left frontal parietal lobes in the deep white matter. This may represent a subacute/old infarct. Chronic involutional changes of the brain. N.B. : The above Results were Read Back by Seng Beck MD to Taina Marshall and understanding confirmed on 03/17/2021 09:50:35 (ET). Electronically Signed: Seng Beck MD at 9:51 EST ,
[2021-03-17 09:26] LABS: Bedside Glucose 164 mg/dL (70-110)
--- NOTE | 2021-03-17 09:39 | CT_ITS ---
STUDY: CTA HEAD AND NECK WITH CONTRAST REASON FOR EXAM: Male, 56 years old. CVA RADIATION DOSAGE (If Supplied By Facility): CTDIvol = ( 29.78 ) mGy, DLP = ( 926.32 ) mGycm TECHNIQUE: CT angiography was performed with a multi-detector CT scanner. Data acquisition was obtained from the skull base through the vertex following intravenous administration of IV 100mL [id number]-[id number]. MIP images were reconstructed from the axial data set. Post-processing of the angiographic images was performed, with multiplanar reformation and 3D reconstruction. Individualized dose optimization techniques were used for this CT. COMPARISON: No relevant priors. FINDINGS: Normal bilateral petrous carotid arteries. There is calcified plaque formation of the right cavernous carotid artery, without a cross-sectional luminal stenosis. There is calcified plaque formation of the left cavernous carotid artery, without a cross-sectional luminal stenosis. Normal right A1 segments of the anterior cerebral artery. There is hypoplastic development of the left A1 segment of the anterior cerebral arteries with an atretic but intact artery. Normal intact anterior communicating artery (ACOM). Normal bilateral A2 segments of the anterior cerebral arteries. Normal right M1 and M2 segments of the middle cerebral arteries, with a normal M1 bifurcation. There is irregularity of the left M1 and M2 branches with minimal luminal narrowing, suggesting atherosclerotic plaque formation, without an occlusion. There is a persistent origin of the right posterior cerebral artery with absence of the posterior communicating artery (PCOM). There is a persistent origin of the left posterior cerebral artery with absence of the posterior communicating artery (PCOM). Normal bilateral vertebral arteries. Normal basilar artery with a normal basilar bifurcation. The visualized bilateral superior cerebellar (SCA) arteries are normal. Normal bilateral P1, P2 and visualized P3 segments of the posterior cerebral arteries. There is no demonstrated aneurysm of the [place] of [place]. There is no demonstrated abnormality of the visualized brain. AORTIC ARCH: There is mild atherosclerotic calcific plaque formation of the aortic arch and great vessels arising from the aortic arch, without a hemodynamically significant stenosis. There is a normal origin of the brachiocephalic, left common carotid, and left subclavian arteries. RIGHT CAROTID ARTERIES: Normal right common carotid artery (CCA). Normal right common carotid bulb. There is mild atherosclerotic plaque formation of the origin of the right internal carotid artery with less than 50% cross sectional diameter stenosis. Focal soft plaque is seen in the proximal portion of the right internal carotid artery causing a tight stenosis. Normal visualized cervical portion of the right internal carotid artery. Normal origin of the right external carotid artery (ECA). LEFT CAROTID ARTERIES: Normal left common carotid artery (CCA). Normal left common carotid bulb. Small caliber left internal carotid artery just distal to the origin of the left internal carotid artery. I suspect retrograde filling from the right internal carotid artery. Normal origin of the left external carotid artery (ECA). VERTEBRAL ARTERIES: There is enhancement within the bilateral vertebral arteries with a small right vertebral artery, and a dominant left vertebral artery. Heterogeneous enlargement of the left lobe of the thyroid gland. CT/STROKE CTA Head AND Neck W/Con IMPRESSION: 50% stenosis at the origin of the right internal carotid artery. Focal high-grade stenosis in the right internal carotid artery just distal to its origin caused by soft plaque. Suspect diffuse narrowing of the left internal carotid artery with retrograde filling via the right internal carotid artery. N.B. : The above Results were Read Back by Seng Beck MD to Taina Marshall and understanding confirmed on 03/17/2021 10:01:34 (ET). Electronically Signed: Seng Beck MD at 10:02 EST ,
--- NOTE | 2021-03-17 10:20 | DS.PCM_ITS ---
Providers Date of Admission: 03/10/21 Date of Discharge: 03/17/21 Primary Care Physician: EDD SRIVASTAVA Reason For Visit: CVA Diagnosis Discharge Diagnosis (1) Acute cerebrovascular accident (CVA): Status: Acute Code(s): I63.9 - Cerebral infarction, unspecified Plan: Transfer to acute hospital. MRI. Telemetry. Neurochecks. (2) Physical debility: Status: Acute Code(s): R53.81 - Other malaise (3) Recent cerebrovascular accident (CVA): Status: Chronic Code(s): Z86.73 - Personal history of transient ischemic attack (TIA), and cerebral infarction without residual deficits Plan: 03/07/21. Received TPA. Attempted thrombectomy - no clot, diffuse small vessel disease. (4) Apraxia of speech: Status: Acute Code(s): R48.2 - Apraxia Plan: No aphasia (5) Dysarthria: Status: Acute Code(s): R47.1 - Dysarthria and anarthria (6) Right hemiparesis: Status: Acute Code(s): G81.91 - Hemiplegia, unspecified affecting right dominant side (7) HTN (hypertension): Status: Chronic Code(s): I10 - Essential (primary) hypertension Qualifiers: Hypertension type: primary hypertension Qualified Code(s): I10 - Essential (primary) hypertension (8) History of seizure: Status: Chronic Code(s): Z87.898 - Personal history of other specified conditions (9) Dyslipidemia: Status: Chronic Code(s): E78.5 - Hyperlipidemia, unspecified (10) Hypertriglyceridemia: Status: Chronic Code(s): E78.1 - Pure hyperglyceridemia (11) Low HDL (under 40): Status: Chronic Code(s): E78.6 - Lipoprotein deficiency (12) Hypertension, uncontrolled: Status: Acute Code(s): I10 - Essential (primary) hypertension (13) Type 2 diabetes mellitus not at goal: Status: Acute Code(s): E11.9 - Type 2 diabetes mellitus without complications (14) Obesity (BMI 30.0-34.9): Status: Chronic Code(s): E66.9 - Obesity, unspecified (15) Carotid stenosis, right: Status: Chronic Code(s): I65.21 - Occlusion and stenosis of right carotid artery (16) Tobacco dependence due to cigarettes: Status: Chronic Code(s): F17.210 - Nicotine dependence, cigarettes, uncomplicated (17) BPH (benign prostatic hyperplasia): Status: Chronic Code(s): N40.0 - Benign prostatic hyperplasia without lower urinary tract symptoms (18) COPD (chronic obstructive pulmonary disease): Status: Chronic Code(s): J44.9 - Chronic obstructive pulmonary disease, unspecified (19) Tremor due to disorder of central nervous system: Status: Acute Code(s): G96.9 - Disorder of central nervous system, unspecified; R25.1 - Tremor, unspecified (20) Eosinophilia, unspecified: Status: Acute Code(s): D72.10 - Eosinophilia, unspecified Medications at Discharge Home Medications albuterol sulfate [Proventil HFA] 2 puff INHALATION Q4H PRN PRN 03/11/21 albuterol sulfate [Proventil] 2.5 mg INHALATION Q6H PRN 03/11/21 amlodipine 10 mg PO DAILY 03/11/21 aspirin 81 mg PO DAILY 03/11/21 atorvastatin 40 mg PO QHS 03/11/21 clobetasol [Temovate] 1 applic TOPICAL BID 03/11/21 clonidine 1 patch TRANSDERMAL QWEEK 03/11/21 clopidogrel 75 mg PO DAILY 03/11/21 cyclobenzaprine [Flexeril] 5 mg PO QHS PRN 03/11/21 gabapentin 600 mg PO BID 03/11/21 glimepiride 8 mg PO BREAKFAST 03/11/21 insulin glargine 30 unit SUBCUT DAILY 03/11/21 lamotrigine 100 mg PO BID 03/11/21 lisinopril 40 mg PO DAILY 03/11/21 metformin 1,000 mg PO BIDCM 03/11/21 metoprolol tartrate 25 mg PO BID 03/11/21 nicotine 1 patch TRANSDERMAL DAILY 03/11/21 oxcarbazepine [Trileptal] 600 mg PO TID 03/11/21 pioglitazone [Actos] 30 mg PO DAILY 03/11/21 tamsulosin [Flomax] 0.4 mg PO DAILY 03/11/21 Hospital Course Operations None Procedures None Summary of Care Provided Minutes Spent on Discharge: 60 Hospital Course: CHAU STURLAUGSON, is a 56 YO M with a PMH of CVA (2019), HTN, DM II, carotid stenosis, obesity, BPH, dyslipidemia and seizures who was scheduled for a routine follow up CT brain and neck on 03/07/21. He presented to the hospital in his normal state of health, checked in and then went to sit and wait to be called. Staff found him slumped over in a chair. He was taken to the ED and was noted to have left gaze preference, R right hemiparesis and aphasia. The initial NIHSS score was 21. A noncontrasted CT brain showed old areas of encephalomalacia in the left hemisphere. CTA of the head and neck showed a loss of parikh?white differentiation in the left posterior frontal lobe consistent with a known left MCA occlusion. He was given TPA. He had a CTP which showed left MCA distribution ischemia with ischemic penumbra involving the left frontal and parietal lobes but sparing the majority of the left temporal lobe. There was no core infarct. Thrombectomy was attempted but, there was no thrombus present. 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 There was a 40% stenosis of the LEA. He had a good result with TPA and the post TPA NIHSS was 9. He has some mild weakness on the right side but, the primary deficit is persistent severe dysarthria and aphasia. He was evaluated by PT/OT/ST and acute inpt rehab was recommended. He was transferred to the inpt acute rehab unit at [facility] on 03/10/21 for 3 hours of therapy daily to restore function/independence at or near his prior level of function. Speech therapy did not feel Chau had aphasia. He was diagnosed with a speech apraxia. He has chronic R side weakness but it was worse than his baseline and fine motor coordination of the RUE was worse. Initially his BP were above goal but, permissive HTN in the first week after an ischemic CVA is OK. The BP was closely monitored. 7 days after the stroke the BP's were still above goal and hydrochlorothiazide 25 mg/triamterene was added to his drug regimen for hypertension which included amlodipine 10 mg daily, TTS 2 patch, Metoprolol 25 mg BID and Lisinopril 40 mg daily. The BP came down to goal and was stable. Chau was progressing well in therapy. On 03/17/21 he was tired after OT and laid down at 07:30. When the nurse woke him at around 8 to Give him his medications his speech seemed a little more slurred but he had just woken up. Just before 9:00 he was heard vomiting in his room and when the nurse went to see him he had increased slurred speech again. I saw him between 905 and 910 and he c/o of severe headache at the time the vomiting started. An NIHSS exam was performed and he got a 3 for R facial paralysis, a 1 for dysarthria and a 1 for aphasia making the total score 5. A stroke alert was called. The BP was markedly elevated at 211/94. The next blood pressure was 180/104 and the third blood pressure was 197/106. Accu-Chek was 164. He was taken to CT scan and a noncontrasted CT brain showed a focal area of decreased attenuation in the left frontal parietal lobes which was thought to represent an old infarct. A CTA was also done and showed a 50% stenosis at the origin of the right internal carotid artery with focal high-grade stenosis in the right internal carotid artery just distal to its origin caused by soft plaque. There was suspected diffuse narrowing of the left internal carotid artery with retrograde filling via the right internal carotid artery. There was no thrombus. While he was in CT holding area the CORTES and nausea resolved. He was started on an IV of NS. He was able to elevate his R eyebrow a little and he had R facial droop where earlier he was unable to show his teeth at all on the R side. He was not a candidate for TPA because her had a stroke on 03/07/21 and he got TPA at that time. There was LVO on CTA so he was not transferred to [facility] for evaluation for thrombectomy. He was admitted to the acute side of the hospital for telemetry, MRI and neuro checks for the next 24H. He has no hx of AF and has never had a 30 day event monitor. He is on ASA, Plavix and a statin. His blood sugars have been controlled on a 2000 calorie heart healthy diet. He has received smoking cessation counseling. Overnight trending pulse ox showed the pulse ox to be > 89% 99.92% of the time. He was accepted for admission by Dr. Mark Rangel. Physical Exam Const alert and oriented x3 Constitutional Narrative: Speech is more slurred than normal but I can still understand him. General Appearance: cooperative Eyes PERRL, EOMs intact bilaterally, conjunctivae normal and no scleral icterus Neck no carotid bruits Chest Chest: symmetrical chest wall rise Resp Resp Narrative: Lungs are diminished throughout but clear to auscultation with no wheezes, crackles or rhonchi. He has no conversational dyspnea and is able to speak in complete sentences. Cardio regular rate, regular rhythm, S1 normal heart sound, S2 normal heart sound, no murmurs, no rub and no gallops Cardio Narrative: No ectopy. Heart sounds are somewhat distant. GI normal to inspection, nondistended, normoactive bowel sounds and soft to palpation GI Narrative: No guarding with palpation Extremity no calf tenderness and no pedal edema Skin General Skin Exam: no breakdown Rashes: rashes noted he had hives on the back and the chest but these have resolved with Benadryl Neuro Neuro Narrative: 1. LOC Alert: 0 2. LOC/Orientation: 0 3. LOC Commands: 0 4. Horizontal extraocular movements : 0 5. Visual ramirez: 0 6. Facial Paresis: 3 7. Dysarthria: 1 8. Best Language/aphasia: 1 9. Motor Left ARM : 0 10. Motor Left LE 11. Motor Right ARM: 0 12. Motor Right leg LE 13. Limb ataxia: 0 14. Sensory: 0 15. Extinction: 0 Total 5 He has intermittent tremors of the LUE and sometimes both UE's Weight / BMI Weight Weight: 236 lb 5.369 oz Body Mass Index (BMI) 32.3 ABG / Lab / Microbiology Data Result Diagrams: 03/11/21 05:32 03/11/21 05:32 Laboratory: Laboratory Results - last 24 hr 03/16/21 11:10: POC Glucose 166 H 03/16/21 16:15: POC Glucose 201 H 03/16/21 21:08: POC Glucose 194 H 03/17/21 06:05: POC Glucose 87 03/17/21 09:19: POC Glucose 164 H Radiography Diagnostic Testing: Radiology Impression Brain CT 03/17/21 09:22 IMPRESSION: Focal area of decreased attenuation in the left frontal parietal lobes in the deep white matter. This may represent a subacute/old infarct. Chronic involutional changes of the brain. N.B. : The above Results were Read Back by Seng Beck MD to Taina Marshall and understanding confirmed on 03/17/2021 09:50:35 (ET). Electronically Signed: Seng Beck MD at 9:51 EST , ADDENDUM: 03/17/21 0958 IMPRESSION: Focal area of decreased attenuation in the left frontal parietal lobes in the deep white matter. This may represent a subacute/old infarct. Chronic involutional changes of the brain. N.B. : The above Results were Read Back by Seng Beck MD to Taina Marshall and understanding confirmed on 03/17/2021 09:50:35 (ET). Electronically Signed: Seng Beck MD at 9:51 EST , Head/Neck CTA 03/17/21 09:39 IMPRESSION: 50% stenosis at the origin of the right internal carotid artery. Focal high-grade stenosis in the right internal carotid artery just distal to its origin caused by soft plaque. Suspect diffuse narrowing of the left internal carotid artery with retrograde filling via the right internal carotid artery. N.B. : The above Results were Read Back by Seng Beck MD to Taina Marshall and understanding confirmed on 03/17/2021 10:01:34 (ET). Electronically Signed: Seng Beck MD at 10:02 EST , ADDENDUM: 03/17/21 1009 IMPRESSION: 50% stenosis at the origin of the right internal carotid artery. Focal high-grade stenosis in the right internal carotid artery just distal to its origin caused by soft plaque. Suspect diffuse narrowing of the left internal carotid artery with retrograde filling via the right internal carotid artery. N.B. : The above Results were Read Back by Seng Beck MD to Taina Joanna and understanding confirmed on 03/17/2021 10:01:34 (ET). Electronically Signed: Seng Beck MD at 10:02 EST , Meaningful Use Info Meaningful Use Diagnoses (Choose all that apply): Ischemic CVA CVA Therapy Assessed for PT,OT and/or ST?: Yes Ischemic Stroke Antithrombotic order at d/c?: Yes Dx of Atrial fib/flutter?: No Anticoagulant at discharge?: No Reason anticoagulant not ordered: Treatment not Indicated Statins at discharge?: Yes Primary Dx Acute Ischemic CVA?: Yes IV tPA ordered during stay?: No Reason IV t-PA not ordered: Medical Contraindication (had a CVA on 03/07/21 and received TPA at that time) and Treatment not Indicated Discharge Plan Admission Admit Date/Time: 03/10/21 22:45 Primary Reason for Your Visit: Post stroke debility Attending Provider: Joanna Her Discharge Orders/Prescriptions Prescriptions: No Action atorvastatin 40 mg Tablet 40 mg PO QHS RF: 0 gabapentin 600 mg Tablet 600 mg PO BID RF: 0 albuterol sulfate [Proventil] 2.5 mg /3 mL (0.083 %) Solution For Nebulization 2.5 mg INHALATION Q6H PRN (Reason: Wheezing) RF: 0 clonidine 0.2 mg/24 hr Patch Weekly 1 patch TRANSDERMAL QWEEK RF: 0 clobetasol [Temovate] 0.05 % Cream 1 applic TOPICAL BID RF: 0 clopidogrel 75 mg Tablet 75 mg PO DAILY RF: 0 amlodipine 10 mg Tablet 10 mg PO DAILY RF: 0 metformin 1,000 mg Tablet 1,000 mg PO BIDCM RF: 0 glimepiride 4 mg Tablet 8 mg PO BREAKFAST RF: 0 albuterol sulfate [Proventil HFA] 90 mcg/actuation Hfa Aerosol Inhaler 2 puff INHALATION Q4H PRN PRN (Reason: Wheezing) RF: 0 lisinopril 40 mg Tablet 40 mg PO DAILY RF: 0 lamotrigine 100 mg Tablet 100 mg PO BID RF: 0 cyclobenzaprine [Flexeril] 5 mg Tablet 5 mg PO QHS PRN (Reason: Muscle Spasm) RF: 0 metoprolol tartrate 25 mg Tablet 25 mg PO BID RF: 0 insulin glargine 100 unit/mL (3 mL) Insulin Pen 30 unit SUBCUT DAILY RF: 0 aspirin 81 mg Capsule 81 mg PO DAILY RF: 0 tamsulosin [Flomax] 0.4 mg Capsule 0.4 mg PO DAILY RF: 0 nicotine 21 mg/24 hr Patch 24 Hour 1 patch TRANSDERMAL DAILY RF: 0 oxcarbazepine [Trileptal] 600 mg Tablet 600 mg PO TID RF: 0 pioglitazone [Actos] 30 mg Tablet 30 mg PO DAILY RF: 0 Referrals / Follow Up: EDD SRIVASTAVA [Other] Disposition Disposition (needs filled in before D/C Order can be placed): Acute Care Hospital [facility] Charges/Coding Visit Charges Inpatient E&M: 58615 Disch Hosp
[2021-03-18 14:30] VITALS: BP 129/70; PULSE 63; RESP 20; TEMP 36.2; O2SAT 95
[2021-03-18] MEDS: 0.9% Normal Saline 1,000 ML 75 ML IV ×2 (15:35→20:43)
--- NOTE | 2021-03-18 16:00 | NURSING ---
Patient made aware that his brother was aware of what happened to him and that he was coming back to rehab today. Patient in good spirits.
[2021-03-18 16:08] VITALS: BMI 32.3
[2021-03-18 17:35] LABS: Bedside Glucose 128 mg/dL (70-110)
[2021-03-18] MEDS: Tamsulosin HCl 0.4 MG Capsule PO (17:36)
[2021-03-18] MEDS: Gabapentin 600 MG Tablet PO (17:36)
[2021-03-18] MEDS: metFORMIN HCl 1,000 MG Tablet 1000 MG PO (17:36)
[2021-03-18 19:10] VITALS: BP 130/97; PULSE 60; RESP 20; TEMP 36.1; O2SAT 97
[2021-03-18 19:51] VITALS: PULSE 60; RESP 18
[2021-03-18 20:11] VITALS: BMI 32.3
[2021-03-18] MEDS: lamoTRIgine 100 MG Tablet PO (20:22)
[2021-03-18 20:23] VITALS: PULSE 66
[2021-03-18] MEDS: Atorvastatin Calcium 40 MG Tablet PO (20:23)
[2021-03-18] MEDS: Metoprolol Tartrate 25 MG Tablet PO (20:23)
[2021-03-18] MEDS: OXcarbazepine 600 MG Tablet PO (20:23)
[2021-03-18 20:50] LABS: Bedside Glucose 123 mg/dL (70-110)
[2021-03-18] MEDS: Clobetasol Propionate 0.05% Cream 1 APPLIC TOPICAL (21:28)
[2021-03-19] MEDS: OXcarbazepine 600 MG Tablet PO ×3 (05:41→22:05)
[2021-03-19 06:00] VITALS: BP 148/71; BP 165/72; BP 166/72; PULSE 60; PULSE 64; PULSE 65
[2021-03-19 06:49] LABS: Anion Gap 6 (5-15); BUN 27 mg/dL (7-18); Calcium,Total 8.8 mg/dL (8.5-10.1); Chloride 94 mmol/L (98-107); Creatinine, Serum 1.08 mg/dL (0.70-1.30); EST Glomerular Filtration Rate 75 mL/min (>60); Est Glom Filt Rate - Afr Amer 91 mL/min (>60); Estimated Creatinine Clearance 81.34 ml/min; Glucose 91 mg/dL (74-106); Potassium 4.6 mmol/L (3.5-5.1); Sodium Level 126 mmol/L (136-145)
[2021-03-19 07:00] LABS: Bedside Glucose 95 mg/dL (70-110)
[2021-03-19 07:33] VITALS: BP 148/77; PULSE 58; RESP 16; TEMP 36.6; O2SAT 95
[2021-03-19] MEDS: Glimepiride 4 MG Tablet 8 MG PO (08:00)
[2021-03-19 08:01] VITALS: PULSE 60
[2021-03-19] MEDS: Lisinopril 40 MG Tablet PO (08:01)
[2021-03-19] MEDS: amLODIPine 10 MG Tablet PO (08:01)
[2021-03-19] MEDS: Clopidogrel Bisulfate 75 MG Tablet PO (08:01)
[2021-03-19] MEDS: Metoprolol Tartrate 25 MG Tablet PO ×2 (08:01→22:02)
[2021-03-19] MEDS: Aspirin 81 MG TAB.CHEW PO (08:01)
[2021-03-19] MEDS: lamoTRIgine 100 MG Tablet PO ×2 (08:01→22:01)
[2021-03-19] MEDS: metFORMIN HCl 1,000 MG Tablet 1000 MG PO ×2 (08:01→17:23)
[2021-03-19] MEDS: Gabapentin 600 MG Tablet PO ×2 (08:03→17:24)
[2021-03-19] MEDS: Clobetasol Propionate 0.05% Cream 1 APPLIC TOPICAL ×2 (08:05→22:03)
[2021-03-19] MEDS: 0.9% Normal Saline 1,000 ML 75 ML IV ×2 (09:04→23:51)
[2021-03-19 11:45] LABS: Bedside Glucose 162 mg/dL (70-110)
[2021-03-19] MEDS: Senna/Docusate Sodium 1 Tablet 2 TABLET PO ×2 (12:16→22:03)
[2021-03-19 15:38] VITALS: BMI 32.3
[2021-03-19 16:41] LABS: Bedside Glucose 94 mg/dL (70-110)
[2021-03-19] MEDS: Tamsulosin HCl 0.4 MG Capsule PO (17:23)
[2021-03-19 19:58] VITALS: BP 150/70; PULSE 60; RESP 17; TEMP 36.6; O2SAT 96
[2021-03-19] MEDS: Atorvastatin Calcium 40 MG Tablet PO (22:01)
[2021-03-19 22:02] VITALS: BP 150/70; PULSE 60
[2021-03-19 23:51] LABS: Bedside Glucose 75 mg/dL (70-110)
[2021-03-19 23:51] LABS: Bedside Glucose 64 mg/dL (70-110)
[2021-03-20 00:39] VITALS: BMI 32.3
--- NOTE | 2021-03-20 01:09 | NURSING ---
PT ASSISTED TO BATHROOM AFTER USING CALL LIGHT TO RING STAFF. BLOOD SUGAR CHECKED AND IS 58. PT IS ASYMPTOMATIC. PT PROVIDED WITH OJ AND SUGAR PACKET TO DRINK.
[2021-03-20 01:16] LABS: Bedside Glucose 58 mg/dL (70-110)
--- NOTE | 2021-03-20 01:23 | NURSING ---
BLOOD SUGAR RECHECKED AND IS 53. PT GIVEN COKE TO DRINK. PT REMAINS ASYMPTOMATIC. DR MCGEE NOTIFIED OF PT'S BLOOD SUGAR READINGS AND HIS BLOOD SUGAR MEDS. ORDER GVEN TO DC ALL BLOOD SUGAR MEDS AND FOR PT TO EAT MEAL AND CONTINUE TO RECHECK BLOOD SUGAR LEVELS. PT PROVIDED WITH TURKEY SANDWICH.
[2021-03-20 01:36] LABS: Bedside Glucose 53 mg/dL (70-110)
[2021-03-20 01:46] LABS: Bedside Glucose 67 mg/dL (70-110)
[2021-03-20 02:11] LABS: Bedside Glucose 95 mg/dL (70-110)
[2021-03-20] MEDS: OXcarbazepine 600 MG Tablet PO ×3 (06:12→21:49)
[2021-03-20 06:51] LABS: Bedside Glucose 109 mg/dL (70-110)
[2021-03-20 09:04] VITALS: PULSE 65
[2021-03-20] MEDS: amLODIPine 10 MG Tablet PO (09:04)
[2021-03-20] MEDS: Clopidogrel Bisulfate 75 MG Tablet PO (09:04)
[2021-03-20] MEDS: lamoTRIgine 100 MG Tablet PO ×2 (09:04→21:49)
[2021-03-20] MEDS: Lisinopril 40 MG Tablet PO (09:04)
[2021-03-20] MEDS: Aspirin 81 MG TAB.CHEW PO (09:04)
[2021-03-20] MEDS: Metoprolol Tartrate 25 MG Tablet PO ×2 (09:04→21:49)
[2021-03-20] MEDS: Gabapentin 600 MG Tablet PO ×2 (09:04→17:19)
[2021-03-20 09:44] VITALS: BP 165/75; PULSE 65; RESP 16; TEMP 36.1; O2SAT 96
--- NOTE | 2021-03-20 11:05 | HP.PCM_ITS ---
HPI - General General Date of Admission: 03/10/21 HPI Narrative CHAU RIVER, is a 56 M with the PMH listed below who was admitted to the inpt acute rehab at [facility] on 03/10/21 for debility due to a L MCA stroke. While in rehab, on 03/17/21, he had sudden onset of severe CORTES, vomiting, increased slurred speech and R facial paralysis. Prior to the acute event he had a mild R facial droop. He was taken to radiology and had a stat NC CTB which showed no acute findings. He could not receive TPA because he was treated with TPA on 03/07/21. Teleneurology was consulted. CTA of the head and neck showed no acute LVO. He was started on IV NS and within and hour the facial paralysis and the slurred speech had improved significantly. He was admitted to the acute side of the hospital for neurochecks, an MRI and telemetry. The MRI showed no acute findings. He had no AF and he was back to his previous baseline by the next morning. He was diagnosed with a TIA. He had a carotid US on 03/18/21 that showed smooth genius plaque at the proximal right internal carotid artery with 50 to 69% stenosis. There was less than 50% stenosis of the right external carotid artery. There was diminished antegrade velocity of the right vertebral artery at 18 cm/s flow. There was smooth heterogeneous plaque at the proximal left internal carotid artery with less than 50% stenosis. There was greater than 50% stenosis of the left external carotid artery and the left vertebral was patent and antegrade. No indication for surgical intervention at this time. Chau was transferred back to rehab on 03/18/21 to resume therapy for the L MCA stroke he suffered on 03/07/21. He will do 3 hours of therapy daily to restore function/independence at or near his level of function prior to the stroke on 03/07/21. Lab in the hospital on 03/18/21 showed a low sodium and increased BUN/CREAT. He had been started on HCTZ/Triamterene a few days prior to the TIA. He has been treated with NS IV. COUNT INCLUDES THE [facility] Medical History BPH (benign prostatic hyperplasia) Carotid stenosis, right COPD (chronic obstructive pulmonary disease) COPD exacerbation Dyslipidemia History of CVA (cerebrovascular accident) History of seizure HTN (hypertension) Hypertension, uncontrolled Obesity (BMI 30.0-34.9) Physical debility TIA (transient ischemic attack) Type 2 diabetes mellitus not at goal Home Medications albuterol sulfate 2.5 mg INHALATION Q6H PRN 03/11/21 [History Last Taken Unknown] albuterol sulfate [Proventil HFA] 2 puff INHALATION Q4H PRN PRN 03/11/21 [History Last Taken Unknown] amlodipine 10 mg PO DAILY 03/11/21 [History Last Taken 03/17/21 09:00] aspirin 81 mg PO DAILY 03/11/21 [History Last Taken 03/17/21 09:00] atorvastatin 40 mg PO QHS 03/11/21 [History Last Taken 03/16/21 21:00] clobetasol 1 applic TOPICAL BID 03/11/21 [History Last Taken 03/17/21 09:00] clonidine 1 patch TRANSDERMAL QWEEK 03/11/21 [History Last Taken 03/16/21] clopidogrel 75 mg PO DAILY 03/11/21 [History Last Taken Unknown] cyclobenzaprine 5 mg PO QHS PRN 03/11/21 [History Last Taken Unknown] gabapentin 600 mg PO BID 03/11/21 [History Last Taken 03/17/21 09:00] glimepiride 8 mg PO BREAKFAST 03/11/21 [History Last Taken 03/17/21 09:00] insulin glargine 30 unit SUBCUT DAILY 03/11/21 [History Last Taken Unknown] lamotrigine 100 mg PO BID 03/11/21 [History Last Taken 03/17/21 09:00] lisinopril 40 mg PO DAILY 03/11/21 [History Last Taken 03/17/21 09:00] metformin 1,000 mg PO BIDCM 03/11/21 [History Last Taken 03/17/21 09:00] metoprolol tartrate 25 mg PO BID 03/11/21 [History Last Taken 03/17/21 09:00] nicotine 1 patch TRANSDERMAL DAILY 03/11/21 [History Last Taken 03/17/21] oxcarbazepine [Trileptal] 600 mg PO TID 03/11/21 [History Last Taken 03/17/21 09:00] pioglitazone [Actos] 30 mg PO DAILY 03/11/21 [History Last Taken 03/17/21 09:00] tamsulosin [Flomax] 0.4 mg PO DAILY 03/11/21 [History Last Taken 03/16/21 17:00] Allergy/AdvReac Type Severity Reaction Status Date / Time Penicillins Allergy Rash Verified 03/10/21 23:56 Family History Mother , Lung CA Cancer Brother Suicide Other CAD (coronary artery disease) CVA (cerebral vascular accident) Diabetes Heart disease Hypertension Myocardial infarction Family History no significant family his Social History household members: none current occupational status: disabled Smoking Status: Current every day smoker tobacco type: cigarettes Tobacco: How many years used: 43 how long ago did patient quit smoking: He did not quit and he smokes 3 packs/day now quit status: considering quitting ROS Constitutional Constitutional: Reports weakness; Denies anorexia, change in weight, chills, fatigue, fever(s) or night sweats Eyes Eyes: Reports blurry vision; Denies change in vision, eye pain or loss of vision ENT HEENT: Reports dysphagia; Denies abnormal hearing, headache(s), hearing loss, nasal congestion or sore throat Cardiovascular Cardiovascular: Denies chest pain, dyspnea on exertion, edema, lightheadedness, orthopnea, palpitations, paroxysmal nocturnal dyspnea or syncope Respiratory/Chest Respiratory/Chest: Denies cough, dyspnea, shortness of breath at rest, shortness of breath with exertion or wheezing Gastrointestinal Gastrointestinal: Denies abdominal pain, constipation, diarrhea, dyspepsia, hematemesis, hematochezia, nausea or vomiting Genitourinary Genitourinary: Denies dysuria, hematuria, nocturia, urinary frequency, urinary hesitancy, urinary incontinence or urinary urgency Musculoskeletal Musculoskeletal: Denies back pain, joint pain, joint swelling or neck pain Integumentary Integumentary: Reports dry skin; Denies jaundice or wounds Neurologic Neurologic: Reports focal weakness and tremor(s); Denies confusion, disequilibrium, dizziness, headache(s), paresthesias or seizures Psychiatric Psychiatric: Reports depression; Denies anxiety, homicidal ideation or suicidal ideation Endocrine Endocrinology: Denies change in body appearance, polydipsia or polyuria Hematologic/Lymphatic Hematologic/Lymphatic: Denies easy bleeding, easy bruising or lymphadenopathy Allergic/Immunologic Allergic/Immunologic: Denies rhinitis, eczemia or asthma Vital Signs Vital Signs Vital Signs: 03/19/21 19:58 03/19/21 22:02 03/19/21 22:10 Temperature 97.9 F Temperature Source Temporal Pulse Rate 60 60 Respiratory Rate 17 Respiratory Effort Normal Non-Labored Respiratory Depth Normal Respiratory Pattern Normal Blood Pressure 150/70 H 150/70 H Blood Pressure Mean 96 Blood Pressure Source Monitor Blood Pressure Position Sitting Blood Pressure Location Right Forearm Pulse Ox 96 Oxygen Delivery Method Room Air Room Air 03/20/21 09:04 03/20/21 09:44 Temperature 96.9 F L Temperature Source Temporal Pulse Rate 65 65 Respiratory Rate 16 Respiratory Effort Respiratory Depth Respiratory Pattern Blood Pressure 165/75 H Blood Pressure Mean 105 Blood Pressure Source Monitor Blood Pressure Position Semi-Fowlers Blood Pressure Location Right Arm Pulse Ox 96 Oxygen Delivery Method Room Air Weight Weight: 236 lb 5.369 oz Body Mass Index (BMI) 32.3 Indicators for Scoring Admitted with or Primary Diagnosis of CVA/Stroke: Yes Hx of CVA/Stroke: Yes Modified [place] Score MRS Score at time of Evaluation: 4-Moderate/severe disability Physical Exam Const alert, oriented x3, no apparent distress and well nourished Constitutional Narrative: Slurred speech is minimal and back to the baseline prior to the recent TIA. General Appearance: cooperative, comfortable and well developed HEENT normocephalic and head/scalp atraumatic Mouth: dry mucous membranes Eyes PERRL, EOMs intact bilaterally, conjunctivae normal and no scleral icterus Neck No nuchal rigidity and no carotid bruits General: trachea midline Chest Chest: symmetrical chest wall rise Resp clear to auscultation bilaterally Resp Narrative: Lungs are diminished throughout but clear to auscultation with no wheezes, crackles or rhonchi. He has no conversational dyspnea and is able to speak in complete sentences. Effort and Inspection: able to speak in complete sentences Cardio regular rate, regular rhythm, S1 normal heart sound, S2 normal heart sound, no murmurs, no rub and no gallops Cardio Narrative: No ectopy. Heart sounds are somewhat distant. GI normal to inspection, nondistended, normoactive bowel sounds, soft to palpation, non-tender and non-distended GI Narrative: No guarding with palpation Extremity no calf tenderness and no pedal edema Extremity Narrative: No clubbing and no cyanosis Skin General Skin Exam: no breakdown Rashes: no rashes and rashes noted Neuro Neuro Narrative: 1. LOC Alert: 0 2. LOC/Orientation: 0 3. LOC Commands: 0 4. Horizontal extraocular movements : 0 5. Visual ramirez: 0 6. Facial Paresis: 1 7. Dysarthria: 1 8. Best Language/aphasia: 0 9. Motor Left ARM : 0 10. Motor Left LE 11. Motor Right ARM: 0 12. Motor Right leg LE 13. Limb ataxia: 0 14. Sensory: 0 15. Extinction: 0 Total 2 He has intermittent tremors of the LUE and sometimes both UE's Psych thought process normal and cooperative Psych Narrative: Affect is flat and down today. Mood definitely changed since the TIA and he is frustrated with a negative attitude. Insight: fair Judgement: fair Results Lab / Micro Data Result Diagrams: 03/11/21 05:32 03/21/21 05:25 Labs: Laboratory Results - last 24 hr 03/19/21 11:32: POC Glucose 162 H 03/19/21 16:28: POC Glucose 94 03/19/21 22:21: POC Glucose 64 L 03/19/21 22:38: POC Glucose 75 03/20/21 01:09: POC Glucose 58 L 03/20/21 01:23: POC Glucose 53 L 03/20/21 01:39: POC Glucose 67 L 03/20/21 01:59: POC Glucose 95 03/20/21 06:47: POC Glucose 109 Assessment & Plan Assessment/Plan (1) Physical debility: (2) TIA (transient ischemic attack): (3) Dehydration: (4) Hyponatremia: (5) Depression as late effect of cerebrovascular accident (CVA): (6) Recent cerebrovascular accident (CVA): (7) Apraxia of speech: (8) Dysarthria: (9) Right hemiparesis: (10) HTN (hypertension): QUALIFIERS: Hypertension type: primary hypertension Qualified Code(s): I10 - Essential (primary) hypertension (11) History of seizure: (12) Dyslipidemia: (13) Hypertriglyceridemia: (14) Low HDL (under 40): (15) Hypertension, uncontrolled: (16) Type 2 diabetes mellitus not at goal: (17) Obesity (BMI 30.0-34.9): (18) Carotid stenosis, right: (19) Tobacco dependence due to cigarettes: (20) BPH (benign prostatic hyperplasia): (21) COPD (chronic obstructive pulmonary disease): (22) Tremor due to disorder of central nervous system: (23) Eosinophilia, unspecified: PLAN: PLAN PT for gait stability OT for ADL's ST for evaluation Analgesics as needed Bowel protocol Fall precautions Assess for Anxiety/Depression GI prophylaxis not necessary at this time. He has no history of peptic ulcer disease, a negative Hemoccult and he is asymptomatic. DVT prophylaxis not needed at this time. He is ambulatory, has IFEANYI hose on and is on both ASA and Plavix Follow up with PCP and neurology following DC from IP Rehab No diuretics going forward. IV NS and recheck a BMP in the AM. Check orthostatics in the AM. Charges/Coding Visit Charges Inpatient E&M: 29206 Init Hosp L2
--- NOTE | 2021-03-20 11:05 | PCM.RU.PYE ---
Admission Information Actual Problem List:: Cognitve Impr/Memory Loss, Mobility Impaired, Diabetes, Hyperglycemia and Alteration-Leisure Activ. Potential Problem List:: DVT, Bleeding, Infection, UTI, Aspiration, Falls, Skin Integrity and Depression Risk of Complications DVT: IFEANYI Hose Bleeding: Monitor Lab Values, Nursing to Teach Precautions for anti-coagulation therapy., Wound, if applicable, to be assessed every shift. and Stroke patients assessed for lethargy or change in status. Infection: Clinical Staff to Monitor for S/S of infection: and S/S of infection include fever, redness, warmth, etc. Urinary Tract Infection: Monitor for frequency, burning, discomfort, or incontinence. and Nursing will obtain urine sample for urinalysis and C&S when ordered. Aspiration: Clinical staff will monitor for coughing, drooling, congestion., Speech will evaluate swallowing and dsyphasia. and Nursing will monitor patient swallowing during meals. Falls: Patient will be evaluated for Fall Precautions and Patient will be placed on Fall Precautions as indicated per protocol. Skin Breakdown: Nursing will assess skin daily using assessment tool. and Nursing will place on Skin Breakdown Precautions as indicated. Pain: Clinical staff will assess patient's pain level per protocol., Medications will be given, if needed, and the pain level reassessed. and Other methods: Massage, distraction, decrease stimulus, etc. used PRN. Plan of Care Patient requires physician specializing in physical medicine and rehab oversight to provide close medical supervision of rehab issues including: Pain Management, Sleep Problems, Bowel and Bladder, Medical and co-morbidity Management, DVT prophylaxis, Rehabilitation Leadership and Coordination of treatment team Patient needs Physical Therapy: For a minimum of 1 hour and At least 5 out of 7 days Patient needs Physical Therapy to improve:: Mobility, Strengthening, Transfers, Stretching, ROM, Endurance, Stairs, Gait and Balance Patient needs Occupational Therapy: For a minimum of 1 hour and At least 5 out of 7 days Patient needs Occupational Therapy to improve ADL's incl.: Eating, Grooming, Bathing, Dressing, Toileting, Toilet transfers, Community Reintegration, Higher functioning activities, Household tasks, Adaptive Equipment, Splinting and Other activities as determined Patient requires speech therapy: For a minimum of 1 hour and At least 5 out of 7 days Patient requires speech therapy for: Swallowing, Cognition, Language Skills and Compensatory Strategies Patient requires 24/ Rehabilitation Nursing for: Pain Issues, Identifying and preventing risk factors, Monitoring and reporting current medical conditions, Assisting with ambulation, transfer, and all ADL's, Teaching patients about disease process and medications, Family teaching, Providing safe environment, Bowel and Bladder Issues, Skin integrity and Medication Management Patient needs Customer Service Sales Consultant/ Case Management for: Discharge Planning, Arranging Home Equipment or Services and Family Interventions Patient needs Dietary and Nutrition Services for: Adequate Nutrition, Nutritional Supplements and Nutritional Education Goals Patient will remain: free from falls and or injury at time of discharge. Patient will perform bed mobility at: MOD I level of assist. Patient will complete transfers from bed to chair at: MOD I level of assist. Patient will ambulate: 100 feet, with LRD and - (300 feet with a standard cane at mod I) Patient will complete upper body dressing at: MOD I level of assist. Patient will complete lower body dressing at: MOD I level of assist. Patient will complete toileting at: MOD I level of assist. Patient will perform bathing at: - (supervision with a shower chair and grab bars) Patient will complete grooming at: MOD I level of assist. Patient will complete home management skills at: MOD I level of assist. Patient will achieve: - (1 curb step and ascend/descend 1 flight of stairs with HR) Patient will have pain level of: of 3 or less Patient's skin will: remain intact Patient will receive: adequate nutrition. Discharge Planning Pt Prognosis for Sig. Practical Improv. w/in Reasonable Time: Good Estimated Length of stay (days): 14 Anticipated D/C Destination: Home with Home Health Was Preadmission Assessment Accurate?: Yes
--- NOTE | 2021-03-20 11:06 | PCM.PN.BLA ---
Progress Note Afebrile VSS Maintaining appropriate oxygen saturation on RA Oral intake is good Discussed with nursing - no problems that need addressed Reviewed the PT/OT/ST notes Medication list reviewed. Blood sugar record was reviewed. Blood sugars yesterday were low. The night hospitalist discontinued all hyupoglycemic agents including Metformin, Amaryl and Lantus. On no diabetic medications at this time. FBS this AM was 109. All lab was personally reviewed. Sodium was 126 , up from 124 on 03/18/21. The BUN is down to 27 and the creat was down to 1.08. Oral intake was 1400 yesterday. BMP has been ordered for the AM. Chau denies CP, SOB, palpitations, cephalgia, N/V, dysuria, lightheadedness. He is still c/o trouble sleeping. Physical Exam Const alert, oriented x3 and no apparent distress Constitutional Narrative: flat affect General Appearance: cooperative Resp clear to auscultation bilaterally Resp Narrative: diminished Effort and Inspection: able to speak in complete sentences Cardio regular rate, regular rhythm and no gallops Cardio Narrative: no ectopy GI normal to inspection, nondistended, normoactive bowel sounds and soft to palpation Extremity no pedal edema Assessment & Plan Assessment/Plan (1) Hypoglycemia: (2) Hyponatremia: (3) Dehydration: (4) Depression as late effect of cerebrovascular accident (CVA): (5) HTN (hypertension): QUALIFIERS: Hypertension type: primary hypertension Qualified Code(s): I10 - Essential (primary) hypertension (6) Physical debility: PLAN: He was previously on 4 hypoglycemic agents and now they have all been discontinued. Will restart the Lantus 30 units daily, Amaryl 4 mg daily and Glucophage 500 mg BID at lower doses and add SSI. Continue to monitor the accuchecks AC and HS. Recheck BMP in the AM. Visit Charges Inpatient E&M: 06395 Subs Hosp L2
[2021-03-20 11:16] LABS: Bedside Glucose 204 mg/dL (70-110)
[2021-03-20 11:58] VITALS: BP 121/60; BP 135/72; BP 138/68; PULSE 66; PULSE 69; PULSE 71
[2021-03-20] MEDS: Insulin Lispro 100 UNIT/ML INSULN.PEN SC ×2 (12:34→17:23)
[2021-03-20] MEDS: 0.9% Normal Saline 1,000 ML 75 ML IV (12:48)
[2021-03-20 16:12] VITALS: BMI 32.3
[2021-03-20] MEDS: metFORMIN HCl 500 MG Tablet PO (17:18)
[2021-03-20] MEDS: Tamsulosin HCl 0.4 MG Capsule PO (17:19)
[2021-03-20 17:35] LABS: Bedside Glucose 244 mg/dL (70-110)
[2021-03-20 19:42] VITALS: BP 149/93; PULSE 67; RESP 17; TEMP 36.5; O2SAT 96
[2021-03-20 21:49] VITALS: BP 149/93; PULSE 67
[2021-03-20] MEDS: Atorvastatin Calcium 40 MG Tablet PO (21:49)
[2021-03-20] MEDS: Mirtazapine 15 MG Tablet PO (21:49)
--- NOTE | 2021-03-20 22:30 | NURSING ---
Pt up to use bathroom, Pt feeling tired and states feels off- Pt requesting blood sugar to be checked. Blood sugar 161 after HS snack of roya crackers and peanut butter. Pt asked what time it was and states oh, maybe that's why I'm tired. Pt denies any other complaints. Assisted to bed, resting comfortably.
[2021-03-20 22:36] LABS: Bedside Glucose 128 mg/dL (70-110)
[2021-03-20 22:36] LABS: Bedside Glucose 161 mg/dL (70-110)
[2021-03-21 01:35] VITALS: BMI 32.3
[2021-03-21] MEDS: 0.9% Normal Saline 1,000 ML 75 ML IV (02:13)
[2021-03-21] MEDS: OXcarbazepine 600 MG Tablet PO ×3 (05:30→20:32)
[2021-03-21 06:13] LABS: Anion Gap 5 (5-15); BUN 20 mg/dL (7-18); BUN/Creat Ratio 19.6 RATIO (10-20); Calcium,Total 8.5 mg/dL (8.5-10.1); Chloride 104 mmol/L (98-107); Creatinine, Serum 1.02 mg/dL (0.70-1.30); EST Glomerular Filtration Rate 80 mL/min (>60); Est Glom Filt Rate - Afr Amer 97 mL/min (>60); Estimated Creatinine Clearance 86.13 ml/min; Glucose 154 mg/dL (74-106); Potassium 4.1 mmol/L (3.5-5.1); Sodium Level 133 mmol/L (136-145)
[2021-03-21 06:31] LABS: Bedside Glucose 149 mg/dL (70-110)
[2021-03-21 07:00] VITALS: BP 134/78; BP 137/67; BP 145/77; PULSE 62; PULSE 64; PULSE 95
[2021-03-21 07:21] LABS: Bedside Glucose 60 mg/dL (70-110)
[2021-03-21 07:21] LABS: Bedside Glucose 64 mg/dL (70-110)
[2021-03-21 07:53] VITALS: PULSE 65
[2021-03-21] MEDS: Clopidogrel Bisulfate 75 MG Tablet PO (07:53)
[2021-03-21] MEDS: Metoprolol Tartrate 25 MG Tablet PO ×2 (07:53→20:31)
[2021-03-21] MEDS: Glimepiride 4 MG Tablet PO (07:53)
[2021-03-21] MEDS: amLODIPine 10 MG Tablet PO (07:53)
[2021-03-21] MEDS: Lisinopril 40 MG Tablet PO (07:53)
[2021-03-21] MEDS: metFORMIN HCl 500 MG Tablet PO ×2 (07:55→17:51)
[2021-03-21] MEDS: lamoTRIgine 100 MG Tablet PO ×2 (07:55→20:30)
[2021-03-21] MEDS: Gabapentin 600 MG Tablet PO ×2 (07:55→17:51)
[2021-03-21] MEDS: Aspirin 81 MG TAB.CHEW PO (07:55)
[2021-03-21 08:46] VITALS: BP 146/66; PULSE 60; RESP 16; TEMP 36.1; O2SAT 95
--- NOTE | 2021-03-21 10:29 | PCM.PN.BLA ---
Progress Note Afebrile VSS-blood pressure is occasionally above goal. No significant bradycardia and no tachycardia. Maintaining appropriate oxygen saturation on RA Oral intake is good Discussed with nursing - no problems that need addressed Reviewed the PT/OT/ST notes Medication list reviewed. The blood sugar record was reviewed. No recurrent hypoglycemia since Sunday night. Fasting blood sugar this morning is 149. We added a carb restriction to his diet and this may be why the BS's were low. It is good that he needs less medication when the diet is controlled. All lab was personally reviewed. The sodium is up to 133 from 124 on 03/18/2021. BUN remains elevated at 20 but the creatinine is down to 1.02 which is within his baseline. Potassium is 4.1. Chau denies lightheadedness, SOB, Orthopnea, cough, CP, N/V/abd pain, dysuria. He has no pain. He denies cephalgia. He is gaining some insight into what he needs to prevent future strokes and asked me today if he could continue OP PT in [place] indefinitely so he has someplace to exercise on a regular basis. He slept better last night than he has slept in a very long time. Denies feeling groggy in the AM's. He is tolerating the mirtazapine with no side effects. Physical Exam Const alert, oriented x3 and no apparent distress Constitutional Narrative: speech is more crisp and I can understand everything he is saying. He is making good eye contact and is pleasant and appropriate. General Appearance: cooperative, comfortable, well kempt and well developed HEENT HEENT Narrative: MM are still dry but, the lips are less chapped Eyes PERRL and EOMs intact bilaterally General Eye: normal appearance of both eyes Resp normal respiratory effort and clear to auscultation bilaterally Resp Narrative: Decreased breath sounds bilaterally. No crackles, wheezes or rhonchi. He has no conversational dyspnea and he is not tachypneic. Cardio regular rate, regular rhythm, S1 normal heart sound, S2 normal heart sound, no murmurs, no rub and no gallops Cardio Narrative: Heart sounds are somewhat distant, possibly due to to increased AP diameter of the chest due to COPD. GI normal to inspection, nondistended, normoactive bowel sounds, soft to palpation and non-tender Extremity no calf tenderness and no pedal edema Skin General Skin Exam: no breakdown and dry skin Rashes: no rashes Neuro Neuro Narrative: minimal right facial droop now....back to baseline. He is ambulating with a standard cane at a much better pace this week. Psych cooperative Psych Narrative: Affect is less flat today and he appears rested. Assessment & Plan Assessment/Plan (1) Physical debility: (2) Recent cerebrovascular accident (CVA): (3) Dysarthria: (4) Right hemiparesis: (5) Depression as late effect of cerebrovascular accident (CVA): (6) TIA (transient ischemic attack): (7) Dehydration: (8) Hyponatremia: (9) Tremor due to disorder of central nervous system: (10) HTN (hypertension): QUALIFIERS: Hypertension type: primary hypertension Qualified Code(s): I10 - Essential (primary) hypertension (11) Hypoglycemia: (12) Type 2 diabetes mellitus not at goal: PLAN: 1. Continue the current drug regimen 2. Continue educating Chau on what needs to be done to prevent strokes going forward. He is getting some insight into what he needs to do. 3. Continue the Remeron 4. Continue therapy 5. Discussed with the clinical social worker outpatient therapy when he goes home so that he is able to continue exercising on a regular basis 6. continue to monitor the BS's AC and HS for another few days. Goal is all BS's < 180-200 and no hypoglycemia 7. Continue to monitor the BP closely. Goal is less than 135/80 with no orthostatic hypotension 8. No diuretics going forward. I suspect the dehydration decreased blood flow to the brain and lead to the TIA. Visit Charges Inpatient E&M: 79178 Subs Hosp L2
[2021-03-21 11:25] LABS: Bedside Glucose 174 mg/dL (70-110)
[2021-03-21] MEDS: Insulin Lispro 100 UNIT/ML INSULN.PEN SC (11:32)
--- NOTE | 2021-03-21 13:50 | CASEMGMT ---
Addendum entered by Marguerite Villagomez 03/22/21 09:06: Received return phone call from [facility]. The landlord stated not to worry about paying his rent; his apartment is safe and can pay his rent once he is out of the hospital. Updated pt. Pt relieved. Original Note: Social Work IDT met with patient and brother/TOAN via conference call for Team meeting. Discussed patient's progress in PT/OT/ST and nursing. Explained [facility] NRD 03/21 and continued stay is not guaranteed with each review. The goal is for pt to return home alone with resumption of HHC services. Left another message with apartment complex concerning pts rent. Left message with Masha PCP ROBB to inquire about aide services, [employer] CM, and what services [facility] was providing. Received return voicemail from PCP ROBB. She was working on referring to HomeCare Waiver program as pt's needs were increasing, so no insurance CM. Pt was only receiving skilled services through [facility], therapy and aides. PCP ROBB is working on getting replacement phone for pt, but no success yet. SW to continue to follow. EMERSON ReavesW
[2021-03-21 16:57] VITALS: BMI 32.3
[2021-03-21 17:05] LABS: Bedside Glucose 121 mg/dL (70-110)
[2021-03-21] MEDS: Tamsulosin HCl 0.4 MG Capsule PO (17:51)
[2021-03-21 20:18] VITALS: BP 140/70; PULSE 60; RESP 16; TEMP 36.6; O2SAT 97
[2021-03-21 20:20] VITALS: BMI 32.3
[2021-03-21 20:31] VITALS: PULSE 70
[2021-03-21] MEDS: Atorvastatin Calcium 40 MG Tablet PO (20:31)
[2021-03-21] MEDS: Mirtazapine 15 MG Tablet PO (20:31)
[2021-03-21 22:00] VITALS: PULSE 60; RESP 16
[2021-03-21 22:36] LABS: Bedside Glucose 123 mg/dL (70-110)
[2021-03-22] MEDS: OXcarbazepine 600 MG Tablet PO ×3 (05:59→21:17)
[2021-03-22 06:26] LABS: Bedside Glucose 171 mg/dL (70-110)
[2021-03-22 08:00] VITALS: PULSE 64
[2021-03-22] MEDS: metFORMIN HCl 500 MG Tablet PO (08:09)
[2021-03-22] MEDS: Aspirin 81 MG TAB.CHEW PO (08:09)
[2021-03-22 08:10] VITALS: BP 149/74; PULSE 64
[2021-03-22] MEDS: Metoprolol Tartrate 25 MG Tablet PO ×2 (08:10→21:14)
[2021-03-22] MEDS: Glimepiride 4 MG Tablet PO (08:10)
[2021-03-22] MEDS: Gabapentin 600 MG Tablet PO ×2 (08:10→17:49)
[2021-03-22] MEDS: amLODIPine 10 MG Tablet PO (08:10)
[2021-03-22] MEDS: Clopidogrel Bisulfate 75 MG Tablet PO (08:10)
[2021-03-22] MEDS: lamoTRIgine 100 MG Tablet PO ×2 (08:10→21:14)
[2021-03-22] MEDS: Lisinopril 40 MG Tablet PO (08:11)
[2021-03-22] MEDS: Insulin Lispro 100 UNIT/ML INSULN.PEN SC ×2 (08:11→13:06)
[2021-03-22] MEDS: Senna/Docusate Sodium 1 Tablet 2 TABLET PO ×2 (08:13→21:15)
[2021-03-22 08:23] VITALS: BP 149/74; PULSE 54; RESP 16; TEMP 36.2; O2SAT 95
[2021-03-22 11:31] LABS: Bedside Glucose 216 mg/dL (70-110)
--- NOTE | 2021-03-22 12:11 | PCM.DC ---
Discharge Instructions Diet Discharge Diet: Low fat / Low cholesterol, 1800 Calorie Control Diet and - (Low salt. ) Activity Discharge Activity: May Not Drive, May Shower (with supervision) and - (Use the walker or a cane anytime you are outside your home.) Weight Bearing Status: Full weight bearing Lifting Restrictions: 10 lbs Dressing / Incision Call your doctor if you observe: Fever of 101 or Higher, Inability to urinate, Shortness of breath, Dizziness, Fainting spells, Swelling in the ankles, Chest pain, Increased palpitations (irregular heartbeat) and Calf discomfort Follow Up Care Please Follow Up With: Dr. Edd Francois When: Within the next 10 days. Test Results: Test results from this visit will be discussed in further detail at your follow-up appointment, if applicable. Pending Tests Upon Discharge: none Discharge Plan Admission Admit Date/Time: 03/10/21 22:45 Primary Reason for Your Visit: Post stroke debility Attending Provider: Joanna Her Instructions Patient Instructions: Diabetes and Heart Disease, Diabetes Carbs Fats Protein, Kicking the Smoking Habit, ED How to Quit Smoking, A1C Additional Instructions / Restrictions: 1. Please read the handouts I gave you. You have some work to do in order to decrease your risk of another stroke or a heart attack. Your HGBA1C was 7.4 % at admission to the rehab unit and that is not horrible. The goal is to get the HGBA1C under 7. HGBA1C is a number that is the average of the blood sugars over the preceding 3 months. Your blood sugars have been very good in rehab and in fact we had to decrease the dose of 2 of the meds and we were able to discontinue the pioglitazone. There is a drug interaction between the Pioglitazone and one of the medications you take to prevent strokes so you should not be taking this medication anyway. You have been on a 1800 calorie a day diet with low fat, low salt and consistent carbohydrate intake. You have also been exercising every day and exercise lowers your blood sugar. Daily exercise will significantly decrease your risk of a stroke and it helps to lower the blood pressure and the blood sugar. It also helps keep your heart and lungs healthy. Find someone to exercise with. This is a little hard in the winter because you can not be outside but, there are many exercises you can do inside. Do the exercises given to you by the therapists at least once a day.......twice if you can. 2. You have done the BEST thing you could do for yourself to keep you healthy and prevent heart disease, strokes, kidney failure and blindness.........you have stopped smoking. Congratulations........it is not easy to quit smoking. I think one of the reasons you smoke so much is you are bored. You need to be around people and be social. Look in the paper or online for things you could do that would get you out of the house. Invite friends over to talk and play games and maybe have lunch or dinner. I also think you are depressed. I think the reason you have trouble sleeping and you have not been able to stop smoking is depression. You were started on an antidepressant called Remeron (also known as Mirtazapine) while you were in rehab and you are sleeping better. It takes a good month before you will experience any of the antidepressant effects.....you have to buil up a level in your blood. This is why it is important to take the medication every night as directed. YOU CAN DO THIS! 3. Ideally your BP should be less than 130/80. The bottom number is always below 80 but the top number is always above 130. If you could lose some weight, even 10 lbs, your BP will come down without having to add another medication. I tried to add another medication.....a diuretic BUT you had a very bad reaction. Your sodium dropped, you had some mild kidney failure and you had increased stroke symptoms due to decreased blood flow to the brain. We had to give you fluids in an IV to reverse these problems. Always stay well hydrated and tell your doctors that you had bad adverse reactions to diuretics in the past. 4. So, here are the rules/goals to stay healthy. a. BP less than 130/80 b. LDL (bad cholesterol) < 50 Yours was 49 at presentation to rehab [facility] c. HGBA1C < 7. You should have this checked every 3 months d. regular exercise at least 5-6 days a week e. weight less than 215. f. NO SMOKING - if you feel like you want to smoke again tell your PCP or call the smoking cessation coordinator at [facility] and they will help. The main number for the hospital is [phone] and ask to be connected to the smoking cessation coordinator. 5. It has been a pleasure getting to know you Chau. You have worked hard in therapy and have been very cooperative. If you have any questions after you leave therapy or I can do something to help you out please do not hesitate to call. Office: [phone] CELL: [phone] PS - you should take the antidepressant for at least 6 months and then you can talk with your doctor about whether you should continue taking it or you should taper down and maybe discontinue to see if you need the medication any longer. Discharge Orders/Prescriptions Prescriptions: New metformin 500 mg Tablet 750 mg PO BIDCM Qty: 60 RF: 0 glimepiride 4 mg Tablet 4 mg PO BREAKFAST Qty: 30 RF: 0 mirtazapine 15 mg Tablet 15 mg PO QHS Qty: 30 RF: 0 Continued albuterol sulfate 2.5 mg /3 mL (0.083 %) Solution For Nebulization 2.5 mg INHALATION Q6H PRN (Reason: Wheezing) RF: 0 clobetasol 0.05 % Cream 1 applic TOPICAL BID RF: 0 albuterol sulfate [Proventil HFA] 90 mcg/actuation Hfa Aerosol Inhaler 2 puff INHALATION Q4H PRN PRN (Reason: Wheezing) RF: 0 cyclobenzaprine 5 mg Tablet 5 mg PO QHS PRN (Reason: Muscle Spasm) RF: 0 aspirin 81 mg Capsule 81 mg PO DAILY RF: 0 atorvastatin 40 mg Tablet 40 mg PO QHS Qty: 30 RF: 0 gabapentin 600 mg Tablet 600 mg PO BID Qty: 6 RF: 0 clonidine 0.2 mg/24 hr Patch Weekly 1 patch TRANSDERMAL QWEEK Qty: 4 RF: 0 clopidogrel 75 mg Tablet 75 mg PO DAILY Qty: 30 RF: 0 tamsulosin [Flomax] 0.4 mg Capsule 0.4 mg PO DAILY Qty: 30 RF: 0 amlodipine 10 mg Tablet 10 mg PO DAILY Qty: 30 RF: 0 nicotine 21 mg/24 hr Patch 24 Hour 1 patch TRANSDERMAL DAILY Qty: 28 RF: 0 oxcarbazepine [Trileptal] 600 mg Tablet 600 mg PO TID Qty: 90 RF: 0 lisinopril 40 mg Tablet 40 mg PO DAILY Qty: 30 RF: 0 lamotrigine 100 mg Tablet 100 mg PO BID Qty: 60 RF: 0 metoprolol tartrate 25 mg Tablet 25 mg PO BID Qty: 60 RF: 0 insulin glargine 100 unit/mL (3 mL) Insulin Pen 30 unit SUBCUT DAILY Qty: 9 RF: 0 Discontinued metformin 1,000 mg Tablet 1,000 mg PO BIDCM RF: 0 glimepiride 4 mg Tablet 8 mg PO BREAKFAST RF: 0 pioglitazone [Actos] 30 mg Tablet 30 mg PO DAILY RF: 0 Referrals / Follow Up: EDD FRANCOIS [Other] Disposition Disposition (needs filled in before D/C Order can be placed): Home Health Service
--- NOTE | 2021-03-22 14:09 | CASEMGMT ---
Social Work Insurance issued LCD 03/20, DC 03/21, however, only notified team at 4:53 pm 03/21. Dr. Her agreed to P2P to get days covered 03/21 - 03/22 and pt DC 03/23. Spoke with pt and pt agreeable to DC 03/23. Left message with PCP SW of DC. Referral made to [facility], whom pt was using prior, for PT/OT/ST/SN/CORTES. Insurance does not cover SW. Pt needs DC transport. Scheduled with [facility] for w/c pick up and delivery driver at 1400. Updated IDT. Plan: DC home alone 03/23 with [facility] PT/OT/ST/SN/CORTES, no DME. Marguerite Villagomez MSW [facility]
--- NOTE | 2021-03-22 14:18 | DS.PCM_ITS ---
Providers Date of Admission: 03/10/21 Date of Discharge: 03/23/21 Primary Care Physician: JANINE FRANCOIS Reason For Visit: CVA Diagnosis Discharge Diagnosis (1) Acute cerebrovascular accident (CVA) due to ischemia: Status: Acute Code(s): I63.9 - Cerebral infarction, unspecified (2) Physical debility: Status: Acute Code(s): R53.81 - Other malaise (3) Dysarthria: Status: Acute Code(s): R47.1 - Dysarthria and anarthria (4) Cognitive deficit as late effect of cerebrovascular accident (CVA): Status: Acute Code(s): I69.319 - Unspecified symptoms and signs involving cognitive functions following cerebral infarction (5) Right hemiparesis: Status: Acute Code(s): G81.91 - Hemiplegia, unspecified affecting right dominant side (6) Depression as late effect of cerebrovascular accident (CVA): Status: Acute Code(s): I69.398 - Other sequelae of cerebral infarction; F06.31 - Mood disorder due to known physiological condition with depressive features (7) TIA (transient ischemic attack): Status: Acute Code(s): G45.9 - Transient cerebral ischemic attack, unspecified (8) Dehydration: Status: Acute Code(s): E86.0 - Dehydration (9) Hyponatremia: Status: Acute Code(s): E87.1 - Hypo-osmolality and hyponatremia (10) Tremor due to disorder of central nervous system: Status: Acute Code(s): G96.9 - Disorder of central nervous system, unspecified; R25.1 - Tremor, unspecified (11) HTN (hypertension): Status: Chronic Code(s): I10 - Essential (primary) hypertension Qualifiers: Hypertension type: primary hypertension Qualified Code(s): I10 - Essential (primary) hypertension (12) Hypoglycemia: Status: Resolved Code(s): E16.2 - Hypoglycemia, unspecified (13) Type 2 diabetes mellitus not at goal: Status: Acute Code(s): E11.9 - Type 2 diabetes mellitus without complications Plan: [place] home with [facility] for PT/OT/ST/SN/CORTES Medications at Discharge Home Medications albuterol sulfate 2.5 mg INHALATION Q6H PRN 03/11/21 albuterol sulfate [Proventil HFA] 2 puff INHALATION Q4H PRN PRN 03/11/21 aspirin 81 mg PO DAILY 03/11/21 clobetasol 1 applic TOPICAL BID 03/11/21 cyclobenzaprine 5 mg PO QHS PRN 03/11/21 amlodipine 10 mg PO DAILY #30 tab 03/22/21 atorvastatin 40 mg PO QHS #30 tab 03/22/21 clonidine 1 patch TRANSDERMAL QWEEK #4 ea 03/22/21 clopidogrel 75 mg PO DAILY #30 tab 03/22/21 gabapentin 600 mg PO BID #6 tab 03/22/21 glimepiride 4 mg PO BREAKFAST #30 tab 03/22/21 lamotrigine 100 mg PO BID #60 tab 03/22/21 lisinopril 40 mg PO DAILY #30 tab 03/22/21 metformin 750 mg PO BIDCM #60 tab 03/22/21 metoprolol tartrate 25 mg PO BID #60 tab 03/22/21 mirtazapine 15 mg PO QHS #30 tab 03/22/21 nicotine 1 patch TRANSDERMAL DAILY #28 ea 03/22/21 oxcarbazepine [Trileptal] 600 mg PO TID #90 tab 03/22/21 tamsulosin [Flomax] 0.4 mg PO DAILY #30 cap 03/22/21 insulin glargine [Lantus Solostar U-100 Insulin] 38 unit SUBCUT BREAKFAST #9 ml 03/23/21 Hospital Course Operations None Procedures None Summary of Care Provided Minutes Spent on Discharge: 50 Hospital Course: CHAU RIVER, is a 56 YO M with a PMH of CVA, HTN, DM II, carotid stenosis, obesity, BPH, dyslipidemia and seizures who was scheduled for a routine follow up CTB and neck on 03/07/21. He presented to the hospital in his normal state of health, checked in and then went to sit and wait to be called. Staff found him slumped over in a chair. He was taken to the ED and was noted to have left gaze preference, R right hemiparesis and aphasia. The initial NIHSS score was 21. A noncontrasted CT brain showed old areas of encephalomalacia in the left hemisphere. CTA of the head and neck showed a loss of parikh?white differentiation in the left posterior frontal lobe consistent with a known left MCA occlusion. He was given TPA. He had a CTP which showed left MCA distribution ischemia with ischemic penumbra involving the left frontal and parietal lobes but sparing the majority of the left temporal lobe. There was no core infarct. Thrombectomy was attempted but, there was no thrombus present. 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 There was a 40% stenosis of the LEA. He had a good result with TPA and the post TPA NIHSS was 9. He has some mild weakness on the right side but, the primary deficit is persistent severe dysarthria and aphasia/speech apraxia. He was evaluated by PT/OT/ST and acute inpt rehab was recommended. He was transferred to the inpt acute rehab unit at [facility] on 03/10/21 for 3 hours of therapy daily to restore function/independence at or near his prior level of fu nction. Systolic BP's were consistently above goal while in the rehab unit and he was on 4 different antihypertensives including Metoprolol 25 mg BID, Clonidine TTS 2, Lisinopril 40 mg daily and Amlodipine 10 mg daily. HCTZ 25mg/Triamterene 37.5 mg was added to his drug regimen and the BP came down to within goal. His HGBA1C was 7.4 % at admission and the LDL was at goal at 49. Chau was doing well in therapy. On 03/16/21 he was [place] to ambulate 326' with a straight cane at a fast rosalind. He was able to dress his upper and lower body at [facility] and he was also standby assist for tub/shower transfer and toilet transfer. He was still impulsive. He was on regular textures and thin liquids and the dysarthria had improved significantly. Unfortunately on the Morning of 03/17/21 he c/o a severe CORTES and then had projectile vomiting. His speech was more slurred and he had paralysis of the R face where previously he had only a facial droop. He had decreased fine motor coordination of the RUE. A stroke alert was called and he was taken to CT scan where a stat CT brain showed no acute findings. CTA of the head and neck showed no LVO. Consult was obtained with teleneurology. He was not a candidate for TPA because he got TPA on 03/07/21 for an acute L MCA ischemic infarct. Neurology recommended an MRI. He was admitted to the acute side of the hospital to obtain an MRI, have neurochecks for 24 hr and telemetry. He was started on a NS IV after a bolus and lab was obtained. Labs showed a low sodium at 124 and a low chloride at 91. The BUN was 34 and the creatinine had increased from 1.02 at admission to 1.29. The acute sx resolved within 6 hours and neuro exam was back to the exam on 03/16/21 prior to the TIA. A carotid ultrasound was done on 03/18/2021 and showed smooth heterogeneous plaque at the proximal right internal carotid artery with 50 to 69% stenosis. There was also heterogeneous plaque at the proximal left internal carotid artery with less than 50% stenosis. There was greater than 50% stenosis in the left external carotid artery and less than 50% in the right external carotid artery. Stenosis at the previous hospital in [place] in the RCA was 40%. Chau was transferred back to acute rehab on 03/18/21 for additional rehab to ensure that he would be safe going home with [facility] later in the week. He was continued on an IV of NS. A recheck on the [facility] after He had IV NS for 24 H showed the NA wo be at 126 and the creat had come down to 1.08 but the BUN was still increased at 27. IV NS was continued for another 24 H and was discontinued on 03/20/21. On 03/21/21 the sodium was up to 133 with a chloride of 104. The BUN was 20 and the creatinine was 1.02. His MM were moist and he denied lightheadedness. Chau was ready to go home with [facility] and plans were initiated to do that Sunday or . The arranged for C with PT/OT/ST/SN/CORTES. Lab on the day of discharge again showed a low sodium of 133 but it was stable. The BUN/CREAT ratio is still elevated at 23.1. Oral intake has been very good and he is not dehydrated. He has stage 2 CRF but this should not cause the elevated BUN/CREAT ratio. He may have some blood loss in the stool causing the increase in the BUN/CREAT ratio. His HGB at admission was normal at 13.5 and on 03/23/21 it was 11.9 (this may be due to better hydration however). He will need to have a BMP and H/H in 1 week and if the HGB continues to decline he will need a GI eval. He was instructed in a low salt diet and an 1800 calorie carb consistent diet by the derrick man while in rehab. We have had to decrease the Metformin and the Amaryl doses and the Pioglitazone was discontinued due to a drug interaction with Plavix. Smoking cessation counselling was given while he was in the hospital and he has been using a nicotine patch. He was educated about the goals for HGBA1C (<7), BP (130/80) and the LDL (<50) since he has had multiple strokes. He was encouraged to lose weight to help with BP and BS control and to get regular exercise at least 6 days a week. He was given an exercise plan by the therapists prior to DC. He is going to follow up with Dr. Janine Francois on 03/28/21. He has a eosinophil percentage of 10% but is asymptomatic. Not sure of the significance of this. May need to see a client development manager or float phlebotomist. Physical Exam Const alert, oriented x3 and no apparent distress Constitutional Narrative: Making good eye contact, appropriate General Appearance: cooperative and comfortable HEENT normocephalic, head/scalp atraumatic and moist oral mucous membranes Eyes PERRL and EOMs intact bilaterally Neck no lymphadenopathy, supple, no JVD and no carotid bruits Resp normal respiratory effort, no use of accessory muscles and clear to auscultation bilaterally Resp Narrative: Not tachypneic and no conversational dyspnea. BS's are diminished throughout. No wheezes or rales. No pursed lip breathing and no PAYTON. Cardio regular rate, regular rhythm, S1 normal heart sound, S2 normal heart sound, no murmurs, no rub and no gallops Cardio Narrative: Has had no ectopy during the hospital stay in [place], while in rehab or when transferred to the acute side of the hospital for TIA on 03/17/21. GI normal to inspection, nondistended, normoactive bowel sounds and non-tender GI Narrative: No guarding with palpation. Extremity no clubbing, cyanosis or edema Extremity Narrative: Negative Zana's and Lizett's signs Skin Skin Narrative: No rashes, no skin breakdown. General Skin Exam: dry skin Rashes: no rashes Neuro oriented x3, CN's II-XII intact bilaterally and no focal motor deficits Motor Exam: strength 5/5 throughout Psych affect normal Psych Narrative: Appropriate, making good eye contact. Able to stay on topic. Sometimes still impulsive. No flight of ideas. He got very depressed after the TIA. He is frustrated that he continues to have strokes/TIA's. He is aware that unless he does a better job of meeting his goals of treatment he will more likely than not continue to have progressive cerebrovascular and cardiovascular disease. He is sleeping better at night with the addition of Remeron at HS to help with sleep and treat depression. He would likely benefit from psychotherapy. Weight / BMI Weight Weight: 232 lb 9.403 oz Body Mass Index (BMI) 32.3 ABG / Lab / Microbiology Data Result Diagrams: 03/23/21 05:39 03/23/21 05:39 Laboratory: Laboratory Results - last 24 hr 03/21/21 16:58: POC Glucose 121 H 03/21/21 20:26: POC Glucose 123 H 03/22/21 06:17: POC Glucose 171 H 03/22/21 11:21: POC Glucose 216 H D/C Instructions Discharge Diet: Low fat / Low cholesterol, 1800 Calorie Control Diet and - (Low salt. ) Weight Bearing Status: Full weight bearing Call your doctor if you observe: Fever of 101 or Higher, Inability to urinate, Shortness of breath, Dizziness, Fainting spells, Swelling in the ankles, Chest pain, Increased palpitations (irregular heartbeat) and Calf discomfort Pending Tests Upon Discharge: none Please Follow Up With: Dr. Janine Francois When: Within the next 10 days. Meaningful Use Info Meaningful Use Diagnoses (Choose all that apply): Ischemic CVA CVA Therapy Assessed for PT,OT and/or ST?: Yes Ischemic Stroke Antithrombotic order at d/c?: Yes Dx of Atrial fib/flutter?: No Anticoagulant at discharge?: No Reason anticoagulant not ordered: Treatment not Indicated Statins at discharge?: Yes Primary Dx Acute Ischemic CVA?: Yes IV tPA ordered during stay?: No Reason IV t-PA not ordered: Medical Contraindication (received TPA after a stroke on 03/07/21) and Procedure not Indicated Discharge Plan Admission Admit Date/Time: 03/10/21 22:45 Primary Reason for Your Visit: Post stroke debility Attending Provider: Joanna Her Instructions Patient Instructions: Diabetes and Heart Disease, Diabetes Carbs Fats Protein, Kicking the Smoking Habit, ED How to Quit Smoking, A1C Additional Instructions / Restrictions: 1. Please read the handouts I gave you. You have some work to do in order to decrease your risk of another stroke or a heart attack. Your HGBA1C was 7.4 % at admission to the rehab unit and that is not horrible. The goal is to get the HGBA1C under 7. HGBA1C is a number that is the average of the blood sugars over the preceding 3 months. Your blood sugars have been very good in rehab and in fact we had to decrease the dose of 2 of the meds and we were able to discontinue the pioglitazone. There is a drug interaction between the Pioglitazone and one of the medications you take to prevent strokes so you should not be taking this medication anyway. You have been on a 1800 calorie a day diet with low fat, low salt and consistent carbohydrate intake. You have also been exercising every day and exercise lowers your blood sugar. Daily exercise will significantly decrease your risk of a stroke and it helps to lower the blood pressure and the blood sugar. It also helps keep your heart and lungs healthy. Find someone to exercise with. This is a little hard in the winter because you can not be outside but, there are many exercises you can do inside. Do the exercises given to you by the therapists at least once a day.......twice if you can. 2. You have done the BEST thing you could do for yourself to keep you healthy and prevent heart disease, strokes, kidney failure and blindness.........you have stopped smoking. Congratulations........it is not easy to quit smoking. I think one of the reasons you smoke so much is you are bored. You need to be around people and be social. Look in the paper or online for things you could do that would get you out of the house. Invite friends over to talk and play games and maybe have lunch or dinner. I also think you are depressed. I think the reason you have trouble sleeping and you have not been able to stop smoking is depression. You were started on an antidepressant called Remeron (also known as Mirtazapine) while you were in rehab and you are sleeping better. It takes a good month before you will experience any of the antidepressant effects.....you have to buil up a level in your blood. This is why it is important to take the medication every night as directed. YOU CAN DO THIS! 3. Ideally your BP should be less than 130/80. The bottom number is always below 80 but the top number is always above 130. If you could lose some weight, even 10 lbs, your BP will come down without having to add another medication. I tried to add another medication.....a diuretic BUT you had a very bad reaction. Your sodium dropped, you had some mild kidney failure and you had increased stroke symptoms due to decreased blood flow to the brain. We had to give you fluids in an IV to reverse these problems. Always stay well hydrated and tell your doctors that you had bad adverse reactions to diuretics in the past. 4. So, here are the rules/goals to stay healthy. a. BP less than 130/80 b. LDL (bad cholesterol) < 50 Yours was 49 at presentation to rehab [facility] c. HGBA1C < 7. You should have this checked every 3 months d. regular exercise at least 5-6 days a week e. weight less than 215. f. NO SMOKING - if you feel like you want to smoke again tell your PCP or call the smoking cessation coordinator at [facility] and they will help. The main number for the hospital is [phone] and ask to be connected to the smoking cessation coordinator. 5. It has been a pleasure getting to know you Chau. You have worked hard in therapy and have been very cooperative. If you have any questions after you leave therapy or I can do something to help you out please do not hesitate to call. Office: [phone] CELL: [phone] PS - you should take the antidepressant for at least 6 months and then you can talk with your doctor about whether you should continue taking it or you should taper down and maybe discontinue to see if you need the medication any longer. Discharge Orders/Prescriptions Prescriptions: New metformin 500 mg Tablet 750 mg PO BIDCM Qty: 60 RF: 0 glimepiride 4 mg Tablet 4 mg PO BREAKFAST Qty: 30 RF: 0 mirtazapine 15 mg Tablet 15 mg PO QHS Qty: 30 RF: 0 Lantus Solostar U-100 Insulin 100 unit/mL (3 mL) Insulin Pen 38 unit subcut BREAKFAST Qty: 9 RF: 0 Continued albuterol sulfate 2.5 mg /3 mL (0.083 %) Solution For Nebulization 2.5 mg INHALATION Q6H PRN (Reason: Wheezing) RF: 0 clobetasol 0.05 % Cream 1 applic TOPICAL BID RF: 0 albuterol sulfate [Proventil HFA] 90 mcg/actuation Hfa Aerosol Inhaler 2 puff INHALATION Q4H PRN PRN (Reason: Wheezing) RF: 0 cyclobenzaprine 5 mg Tablet 5 mg PO QHS PRN (Reason: Muscle Spasm) RF: 0 aspirin 81 mg Capsule 81 mg PO DAILY RF: 0 atorvastatin 40 mg Tablet 40 mg PO QHS Qty: 30 RF: 0 gabapentin 600 mg Tablet 600 mg PO BID Qty: 6 RF: 0 clonidine 0.2 mg/24 hr Patch Weekly 1 patch TRANSDERMAL QWEEK Qty: 4 RF: 0 clopidogrel 75 mg Tablet 75 mg PO DAILY Qty: 30 RF: 0 tamsulosin [Flomax] 0.4 mg Capsule 0.4 mg PO DAILY Qty: 30 RF: 0 amlodipine 10 mg Tablet 10 mg PO DAILY Qty: 30 RF: 0 nicotine 21 mg/24 hr Patch 24 Hour 1 patch TRANSDERMAL DAILY Qty: 28 RF: 0 oxcarbazepine [Trileptal] 600 mg Tablet 600 mg PO TID Qty: 90 RF: 0 lisinopril 40 mg Tablet 40 mg PO DAILY Qty: 30 RF: 0 lamotrigine 100 mg Tablet 100 mg PO BID Qty: 60 RF: 0 metoprolol tartrate 25 mg Tablet 25 mg PO BID Qty: 60 RF: 0 Discontinued metformin 1,000 mg Tablet 1,000 mg PO BIDCM RF: 0 glimepiride 4 mg Tablet 8 mg PO BREAKFAST RF: 0 insulin glargine 100 unit/mL (3 mL) Insulin Pen 30 unit SUBCUT DAILY RF: 0 pioglitazone [Actos] 30 mg Tablet 30 mg PO DAILY RF: 0 Referrals / Follow Up: JANINE FRANCOIS [Other] - 03/28/21 2:00 pm (Masha from Case management is working on getting you a new phone. She has to send a money order to [place] for the phone payment than they will mail you a new phone. ) Myles Brown MD [STAFF PHYSICIAN] - Disposition Disposition (needs filled in before D/C Order can be placed): Home Health Service Charges/Coding Visit Charges Inpatient E&M: 69098 Disch Hosp
[2021-03-22 15:55] VITALS: BMI 32.3
[2021-03-22 16:21] LABS: Bedside Glucose 109 mg/dL (70-110)
[2021-03-22] MEDS: Tamsulosin HCl 0.4 MG Capsule PO (17:49)
[2021-03-22] MEDS: metFORMIN HCl 500 MG Tablet 750 MG PO (17:49)
[2021-03-22 20:15] VITALS: BP 156/81; PULSE 58; RESP 18; TEMP 36.6; O2SAT 98
[2021-03-22 21:06] VITALS: BMI 32.3
[2021-03-22 21:14] VITALS: PULSE 60
[2021-03-22] MEDS: Atorvastatin Calcium 40 MG Tablet PO (21:14)
[2021-03-22] MEDS: Mirtazapine 15 MG Tablet PO (21:14)
[2021-03-22 21:26] LABS: Bedside Glucose 112 mg/dL (70-110)
[2021-03-22 22:00] VITALS: PULSE 60; RESP 16
[2021-03-23 05:54] LABS: Absolute Lymphocyte Count 1.88 X10^3/uL (0.83-4.51); Absolute Neutrophil Count 8.3 X10^3/uL (2.0-7.7); Basophil# 0.13 X10^3/uL; Eosinophil# 1.29 X10^3/uL; Hematocrit 35.8 % (40-54); Hemoglobin 11.9 g/dL (13.0-16.5); Lymphocyte # 1.88 X10^3/ul (0.83-4.51); Lymphocyte % 14.6 % (19-41); Mean Corp Hgb Conc 33.2 g/dL (32-36); Mean Corpuscular Hgb 29.9 pg (27.0-32.0); Mean Corpuscular Volume 89.9 fL (80-94); Mean Platelet Vol. 8.8 fl (6.2-12.0); Monocyte# 1.13 X10^3/uL; Monocyte% 8.8 % (0-10); NRBC Flagged by Analyzer 0 % (0-5); Neutrophil # 8.34 X10^3/uL (2.7-7.7); Neutrophil % 64.9 % (47-70); Platelet Count 317 K/mm3 (150-450); RBC Distribution Width CV 12.6 % (11.6-14.6); Red Blood Count 3.98 M/mm3 (4.6-6.2); White Blood Count 12.9 K/mm3 (4.4-11.0)
[2021-03-23] MEDS: OXcarbazepine 600 MG Tablet PO ×2 (06:28→14:12)
[2021-03-23 06:34] LABS: Anion Gap 7 (5-15); BUN 27 mg/dL (7-18); BUN/Creat Ratio 23.1 RATIO (10-20); Calcium,Total 8.8 mg/dL (8.5-10.1); Chloride 102 mmol/L (98-107); Creatinine, Serum 1.17 mg/dL (0.70-1.30); EST Glomerular Filtration Rate 69 mL/min (>60); Est Glom Filt Rate - Afr Amer 83 mL/min (>60); Estimated Creatinine Clearance 75.09 ml/min; Glucose 163 mg/dL (74-106); Sodium Level 133 mmol/L (136-145)
[2021-03-23 06:45] LABS: Bedside Glucose 189 mg/dL (70-110)
[2021-03-23 07:40] VITALS: BP 137/68; PULSE 61; RESP 18; TEMP 36.3; O2SAT 96
[2021-03-23] MEDS: amLODIPine 10 MG Tablet PO (08:03)
[2021-03-23] MEDS: Lisinopril 40 MG Tablet PO (08:03)
[2021-03-23] MEDS: Aspirin 81 MG TAB.CHEW PO (08:03)
[2021-03-23] MEDS: cloNIDine HCl 0.2 MG Patch TD (08:03)
[2021-03-23] MEDS: lamoTRIgine 100 MG Tablet PO (08:03)
[2021-03-23] MEDS: Glimepiride 4 MG Tablet PO (08:03)
[2021-03-23] MEDS: Clopidogrel Bisulfate 75 MG Tablet PO (08:03)
[2021-03-23 08:04] VITALS: BP 137/68; PULSE 61
[2021-03-23] MEDS: Metoprolol Tartrate 25 MG Tablet PO (08:04)
[2021-03-23] MEDS: metFORMIN HCl 500 MG Tablet 750 MG PO (08:04)
[2021-03-23] MEDS: Insulin Lispro 100 UNIT/ML INSULN.PEN SC ×2 (08:05→11:55)
[2021-03-23] MEDS: Gabapentin 600 MG Tablet PO (08:15)
[2021-03-23 11:15] LABS: Bedside Glucose 215 mg/dL (70-110)
[2021-03-23 14:22] VITALS: BMI 32.3
--- NOTE | 2021-03-23 14:24 | NURSING ---
Discharged home via physicians transport. Discharge instructions, medications and appointments reviewed with pt. denies questions or concerns
[2021-03-23 14:25] VITALS: BP 137/68; PULSE 61; RESP 18; TEMP 36.2; O2SAT 96
== END 2021-03-23 14:28 | disposition home health service (06) | DRG 58 ==
PROVIDERS: Admitting Provider Internal Medicine; Visit Provider Internal Medicine
DX: I69.354 Hemiplegia and hemiparesis following cerebral infarction affecting left non-dominant side (principal); D72.10 Eosinophilia, unspecified; E11.9 Type 2 diabetes mellitus without complications; Z79.4 Long term (current) use of insulin; J44.9 Chronic obstructive pulmonary disease, unspecified; N40.0 Benign prostatic hyperplasia without lower urinary tract symptoms; I69.322 Dysarthria following cerebral infarction; I10 Essential (primary) hypertension; E78.5 Hyperlipidemia, unspecified; R25.1 Tremor, unspecified; I69.990 Apraxia following unspecified cerebrovascular disease; F17.210 Nicotine dependence, cigarettes, uncomplicated; G47.33 Obstructive sleep apnea (adult) (pediatric); I69.319 Unspecified symptoms and signs involving cognitive functions following cerebral infarction; F06.31 Mood disorder due to known physiological condition with depressive features; I69.398 Other sequelae of cerebral infarction; I16.1 Hypertensive emergency; R11.10 Vomiting, unspecified; R47.01 Aphasia; E66.9 Obesity, unspecified; Z68.33 Body mass index [BMI] 33.0-33.9, adult; Z79.899 Other long term (current) drug therapy; Z79.02 Long term (current) use of antithrombotics/antiplatelets; R29.810 Facial weakness; R47.81 Slurred speech; Z79.82 Long term (current) use of aspirin
CPT/HCPCS: 36415; 70450; 70496; 70498; 70551; 80048; 80053; 80061; 82962; 83036; 83735; 84100; 85025; 92507; 92523; 92526; 92610; 93880; 94640; 94762; 96360; 96361; 96372; 97110; 97112; 97116; 97162; 97166; 97530; 97535; 97802; 97803; 99218; 99251; 99406; J7030; J7040; J7050; Q9967; A4216; G0378; G0379; G0463

== ENCOUNTER 2021-03-17 11:00 | Observation (INO) | payer MEDICAID, SELFPAY ==
[2021-03-17] VITALS (9 sets, daily range): BP systolic 115–142; BP diastolic 71–88; PULSE 63–72; RESP 16–18; TEMP 36.4–36.6; O2SAT 96; BMI 33.0
--- NOTE | 2021-03-17 11:09 | MRI_ITS ---
EXAM: MR HEAD WITHOUT INTRAVENOUS CONTRAST : 1965 CLINICAL INDICATION: right sided weakness TECHNIQUE: Multiplanar and multisequence MR images of the brain were obtained without intravenous contrast. This report was created using [employer] report generation technology. COMPARISON: CT brain March 17, 2021 FINDINGS: BRAIN AND EXTRA-AXIAL SPACES: Large area of encephalomalacic change within the left cerebral hemisphere consistent with chronic ischemic change. Compensatory dilatation of the left lateral ventricle. There is no abnormal diffusion weighted signal intensity to suggest an acute ischemic event. No intra- or extra-axial hemorrhage. No intracranial mass or mass effect. Posterior fossa structures are unremarkable. Basal cisterns are patent. SELLA: Unremarkable. Normal sella turcica, pituitary gland, infundibular stalk, optic chiasm and hypothalamus. AUDITORY SYSTEM: Unremarkable. The internal auditory canals are patent. BONES/JOINTS: Unremarkable. No discrete lytic or blastic abnormalities. SINUSES: Unremarkable as visualized. Clear. MASTOID AIR CELLS: Unremarkable as visualized. Clear. ORBITS: Unremarkable as visualized. Both globes, extraocular muscles, optic nerves and retrobulbar fat appear unremarkable. VASCULATURE: Unremarkable as visualized. Normal flow voids in the major intracranial circulation. MRI/Brain without Contrast IMPRESSION: 1. No evidence of acute ischemia. 2. Chronic ischemic changes. at 1250 Reported and signed by: Deepak Parson MD Electronically Signed: Deepak Parson MD at 12:49 EST ,
[2021-03-17 13:11] LABS: Bedside Glucose 133 mg/dL (70-110)
--- NOTE | 2021-03-17 13:55 | CASEMGMT ---
Social Work Pt is admitted from Inpatient Rehab unit. ROBB spoke with Armida in [place] who states pt can return to inpatient rehab when medically ready. Pt will need a new precert with insurance prior to discharge. Precert not yet started as pt just arrived to unit today and discharge date not yet determined. Plan: Inpatient Rehab, pending insurance authorization [employer] [employer]
[2021-03-17] MEDS: OXcarbazepine 600 MG Tablet PO ×2 (13:58→21:11)
--- NOTE | 2021-03-17 14:15 | PCM.HP.STD ---
Documented by User: Mak KNOX 03/17/21 14:46 HPI - General General Date of Admission: 03/17/21 Date of Service: 03/17/21 Chief Complaint: Slurred speech and right sided facial paralysis HPI Narrative CLARICE RIVER is a 56-year-old male who presents to [facility] from the transitional care unit for evaluation of slurred speech, vomiting and right-sided facial paralysis. Patient reports that this morning he was feeling ill and proceeded to vomit in the restroom, at which point he returned to his room and reports that his nurse told him his slurred speech appeared to be worse. Patient reports that he just felt ill, but was otherwise feeling fine and that his other complaints of slurred speech and right-sided facial weakness are chronic issues for him due to previous strokes. According to physician over at the transitional care unit patient NIH stroke score was 5 4 right-sided facial weakness, dysarthria and aphasia. Patient was also noted to have an elevated blood pressure at 211/94 being the highest. PENDING SALE TO [facility] Medical History (Updated 03/17/21 @ 14:36 by Mak KNOX) BPH (benign prostatic hyperplasia) Carotid stenosis, right COPD (chronic obstructive pulmonary disease) COPD exacerbation Dyslipidemia History of CVA (cerebrovascular accident) History of seizure HTN (hypertension) Hypertension, uncontrolled Obesity (BMI 30.0-34.9) Physical debility Type 2 diabetes mellitus not at goal Home Medications albuterol sulfate [Proventil HFA] 2 puff INHALATION Q4H PRN PRN 03/11/21 [History Last Taken Unknown] albuterol sulfate [Proventil] 2.5 mg INHALATION Q6H PRN 03/11/21 [History Last Taken Unknown] amlodipine 10 mg PO DAILY 03/11/21 [History Last Taken 03/17/21 09:00] aspirin 81 mg PO DAILY 03/11/21 [History Last Taken 03/17/21 09:00] atorvastatin 40 mg PO QHS 03/11/21 [History Last Taken 03/16/21 21:00] clobetasol [Temovate] 1 applic TOPICAL BID 03/11/21 [History Last Taken 03/17/21 09:00] clonidine 1 patch TRANSDERMAL QWEEK 03/11/21 [History Last Taken 03/16/21] clopidogrel 75 mg PO DAILY 03/11/21 [History Last Taken Unknown] cyclobenzaprine [Flexeril] 5 mg PO QHS PRN 03/11/21 [History Last Taken Unknown] gabapentin 600 mg PO BID 03/11/21 [History Last Taken 03/17/21 09:00] glimepiride 8 mg PO BREAKFAST 03/11/21 [History Last Taken 03/17/21 09:00] insulin glargine 30 unit SUBCUT DAILY 03/11/21 [History Last Taken Unknown] lamotrigine 100 mg PO BID 03/11/21 [History Last Taken 03/17/21 09:00] lisinopril 40 mg PO DAILY 03/11/21 [History Last Taken 03/17/21 09:00] metformin 1,000 mg PO BIDCM 03/11/21 [History Last Taken 03/17/21 09:00] metoprolol tartrate 25 mg PO BID 03/11/21 [History Last Taken 03/17/21 09:00] nicotine 1 patch TRANSDERMAL DAILY 03/11/21 [History Last Taken 03/17/21] oxcarbazepine [Trileptal] 600 mg PO TID 03/11/21 [History Last Taken 03/17/21 09:00] pioglitazone [Actos] 30 mg PO DAILY 03/11/21 [History Last Taken 03/17/21 09:00] tamsulosin [Flomax] 0.4 mg PO DAILY 03/11/21 [History Last Taken 03/16/21 17:00] Allergy/AdvReac Type Severity Reaction Status Date / Time Penicillins Allergy Rash Verified 03/10/21 23:56 Family History Mother , Lung CA Cancer Brother Suicide Other CAD (coronary artery disease) CVA (cerebral vascular accident) Diabetes Heart disease Hypertension Myocardial infarction Social History household members: none current occupational status: disabled Smoking Status: Current every day smoker tobacco type: cigarettes Tobacco: How many years used: 43 how long ago did patient quit smoking: He did not quit and he smokes 3 packs/day now quit status: considering quitting ROS Constitutional Constitutional: Reports fatigue; Denies anorexia, change in weight, chills, fever(s), malaise, night sweats, weakness or other Eyes Eyes: Reports change in vision; Denies blurry vision, change in eye color, discharge from eye(s), double vision, erythema, eye pain, loss of vision or other ENT HEENT: Denies abnormal hearing, dysphagia, ear pain, epistaxis, headache(s), hearing loss, nasal congestion, nasal discharge, post nasal drip, sinus pressure, sore throat or other Cardiovascular Cardiovascular: Denies chest pain, claudication, dyspnea on exertion, edema, lightheadedness, orthopnea, palpitations, paroxysmal nocturnal dyspnea, rapid heart rate, syncope or other Respiratory/Chest Respiratory/Chest: Denies cough, dyspnea, excessive phlegm production, hemoptysis, productive cough, shortness of breath at rest, shortness of breath with exertion, wheezing or other Gastrointestinal Gastrointestinal: Denies abdominal pain, coffee ground emesis, constipation, diarrhea, dyspepsia, hematemesis, hematochezia, loose stools, melena, nausea, vomiting or other Genitourinary Genitourinary: Denies burning urination, difficulty urinating, dysuria, hematuria, nocturia, urinary frequency, urinary hesitancy, urinary incontinence, urinary urgency or other Musculoskeletal Musculoskeletal: Denies arthralgias, back pain, joint pain, joint stiffness, joint swelling, myalgias, neck pain or other Neurologic Neurologic: Reports abnormal speech; Denies abnormal gait, confusion, disequilibrium, dizziness, focal weakness, headache(s), numbness, paresthesias, seizure-like activity, seizures, syncope, tingling, tremor(s) or other Psychiatric Psychiatric: Denies anxiety, depression, homicidal ideation, suicidal ideation or other Endocrine Endocrinology: Denies change in body appearance, cold intolerance, excessive sweating, heat intolerance, polydipsia, polyuria or other Hematologic/Lymphatic Hematologic/Lymphatic: Denies anemia, easy bleeding, easy bruising, lymphadenopathy or other Allergic/Immunologic Allergic/Immunologic: Denies rhinitis, hives, eczemia, asthma or other Vital Signs Vital Signs Vital Signs: 03/17/21 10:50 03/17/21 11:00 03/17/21 14:00 Temperature 97.5 F L Temperature Source Temporal Pulse Rate 70 69 Respiratory Rate 18 Respiratory Effort Normal Non-Labored Respiratory Depth Normal Respiratory Pattern Normal Blood Pressure 142/88 H Blood Pressure Mean 106 Blood Pressure Source Monitor Blood Pressure Position Semi-Fowlers Blood Pressure Location Right Arm Pulse Ox 96 Oxygen Delivery Method Room Air Room Air Weight Weight: 236 lb 8.896 oz Body Mass Index (BMI) 33.0 Physical Exam Const alert and oriented x3 General Appearance: cooperative HEENT normocephalic, head/scalp atraumatic and hearing grossly normal bilaterally Eyes PERRL, EOMs intact bilaterally and conjunctivae normal Neck no lymphadenopathy, supple and no JVD Resp normal respiratory effort, no retractions, no use of accessory muscles and clear to auscultation bilaterally Cardio regular rate, regular rhythm, no gallops and no JVD GI normal to inspection, nondistended, normoactive bowel sounds, soft to palpation and non-tender Extremity normal to inspection, full ROM and no clubbing, cyanosis or edema Skin no rashes or lesions noted, no wounds and skin turgor normal Neuro CN's II-XII intact bilaterally Psych affect normal Results Lab / Micro Data Labs: Laboratory Results - last 24 hr 03/17/21 12:49: POC Glucose 133 H Radiology Impression Brain MRI 03/17/21 11:09 IMPRESSION: 1. No evidence of acute ischemia. 2. Chronic ischemic changes. at 1250 Reported and signed by: Deepak Parson MD Electronically Signed: Deepak Parson MD at 12:49 EST , Assessment & Plan Assessment/Plan (1) Stroke-like symptoms: PLAN: Patient is a 56-year-old male who was admitted to [facility] from the transitional care unit for evaluation and management of strokelike symptoms. 1) strokelike symptoms Patient was observed having dysarthria, right-sided facial weakness and aphasia. Physician in the TCU evaluated a NIH stroke scale of 5 for associated symptoms. Plan; admit to PCU for observation, obtain MRI of the brain, serial NIHSS, will obtain SOC consult if MRI is positive as well as further evaluation, obtain PT/OT eval. 2) hypertensive emergency According to physician at TCU patient was observed with that elevated blood pressure above 200 systolic. Currently 142/88. Will allow for permissive hypertension pending MRI. As needed hydralazine and labetalol ordered. 3) DM2 Home diabetic regimen continued with sliding scale insulin. 4) seizure history Does not appear to be in status. Continue Lamictal and Trileptal. DVT prophylaxis - Heparin Patient seen by Mak Hopkins PA-C, under the supervision of Dr. Rangel. Time spent on patient care: 25 minutes. Documented by User: Dr. Mark Rangel, 03/17/21 17:03 HPI - General General Date of Admission: 03/17/21 PENDING SALE TO [facility] Medical History (Updated 03/17/21 @ 14:36 by Mak KNOX) BPH (benign prostatic hyperplasia) Carotid stenosis, right COPD (chronic obstructive pulmonary disease) COPD exacerbation Dyslipidemia History of CVA (cerebrovascular accident) History of seizure HTN (hypertension) Hypertension, uncontrolled Obesity (BMI 30.0-34.9) Physical debility Type 2 diabetes mellitus not at goal Home Medications albuterol sulfate [Proventil HFA] 2 puff INHALATION Q4H PRN PRN 03/11/21 [History Last Taken Unknown] albuterol sulfate [Proventil] 2.5 mg INHALATION Q6H PRN 03/11/21 [History Last Taken Unknown] amlodipine 10 mg PO DAILY 03/11/21 [History Last Taken 03/17/21 09:00] aspirin 81 mg PO DAILY 03/11/21 [History Last Taken 03/17/21 09:00] atorvastatin 40 mg PO QHS 03/11/21 [History Last Taken 03/16/21 21:00] clobetasol [Temovate] 1 applic TOPICAL BID 03/11/21 [History Last Taken 03/17/21 09:00] clonidine 1 patch TRANSDERMAL QWEEK 03/11/21 [History Last Taken 03/16/21] clopidogrel 75 mg PO DAILY 03/11/21 [History Last Taken Unknown] cyclobenzaprine [Flexeril] 5 mg PO QHS PRN 03/11/21 [History Last Taken Unknown] gabapentin 600 mg PO BID 03/11/21 [History Last Taken 03/17/21 09:00] glimepiride 8 mg PO BREAKFAST 03/11/21 [History Last Taken 03/17/21 09:00] insulin glargine 30 unit SUBCUT DAILY 03/11/21 [History Last Taken Unknown] lamotrigine 100 mg PO BID 03/11/21 [History Last Taken 03/17/21 09:00] lisinopril 40 mg PO DAILY 03/11/21 [History Last Taken 03/17/21 09:00] metformin 1,000 mg PO BIDCM 03/11/21 [History Last Taken 03/17/21 09:00] metoprolol tartrate 25 mg PO BID 03/11/21 [History Last Taken 03/17/21 09:00] nicotine 1 patch TRANSDERMAL DAILY 03/11/21 [History Last Taken 03/17/21] oxcarbazepine [Trileptal] 600 mg PO TID 03/11/21 [History Last Taken 03/17/21 09:00] pioglitazone [Actos] 30 mg PO DAILY 03/11/21 [History Last Taken 03/17/21 09:00] tamsulosin [Flomax] 0.4 mg PO DAILY 03/11/21 [History Last Taken 03/16/21 17:00] Allergy/AdvReac Type Severity Reaction Status Date / Time Penicillins Allergy Rash Verified 03/10/21 23:56 Family History Mother , Lung CA Cancer Brother Suicide Other CAD (coronary artery disease) CVA (cerebral vascular accident) Diabetes Heart disease Hypertension Myocardial infarction Social History household members: none current occupational status: disabled Smoking Status: Current every day smoker tobacco type: cigarettes Tobacco: How many years used: 43 how long ago did patient quit smoking: He did not quit and he smokes 3 packs/day now quit status: considering quitting Charges/Coding Addendum Addendum: Patient was seen and examined today independently of Mak Hopkins, he was transferred from the rehab unit at [facility] at the request of the rehab physician due to increased right-sided weakness and increased slurred speech. A stroke team was called on the patient and he underwent a CTA of the head and neck as well as a CT of the head which did not show any new strokes. Patient was in the rehab unit at [facility] after sustaining a stroke in February 2021, he also had a previous stroke and 2019. On examination he appeared older than his stated age. Vital signs as documented. Skin warm and dry and without overt rashes. Neck without JVD, neck was supple, trachea midline, thyroid was normal. Lungs clear bilaterally, normal air movement was noted. Heart exam notable for regular rhythm, normal sounds and absence of murmurs, rubs or gallops. Abdomen unremarkable and without evidence of organomegaly, masses, or abdominal aortic enlargement. Bowel sounds are present, abdomen is not distended. Extremities nonedematous, no cyanosis was noted, no clubbing was noted. Neuro: Cranial nerves II through XII are grossly intact, some right-sided weakness was noted in comparison to the left upper and lower extremity, patient had some dysarthria but I did not detect any expressive aphasia. Psych: Patient is alert and oriented x3, he does not appear anxious or depressed, he does not appear agitated. Impression #1 transient ischemic attack-patient will undergo an MRI of the brain, he will be seen by PT and OT, NIH score was will be obtained, he will remain on dual antiplatelet therapy. #2 cerebrovascular disease-patient is currently on dual antiplatelet therapy #3 essential hypertension-patient's blood pressure at this time appears to be controlled, and was elevated earlier this morning in the rehab unit at [facility]. He will continue on his present medications #4 chronic obstructive pulmonary disease-patient was placed on aerosol treatments I have reviewed Mak Hopkins's history and physical including his medical assessment and plan of care with the above additions endorse it. Clinical time spent addressing the patient's medical issues, reviewing all of his medical data, and collaborating with the patient's care team: 45 minutes Visit Charges OBSV E&M: 87116 Initial observation care L3
[2021-03-17] MEDS: metFORMIN HCl 1,000 MG Tablet 1000 MG PO (16:14)
[2021-03-17 16:25] LABS: Bedside Glucose 131 mg/dL (70-110)
--- NOTE | 2021-03-17 19:09 | PCM.PN.BLA ---
Progress Note I cancelled the Lipid panel and the HGBA1C ordered by the [employer]GING ROLL OPERATOR. He had both of these tests on 03/11/21. The hemoglobin A1c was 7.4. Triglycerides were elevated at 340, VLDL is 49 and the HDL is low at 32. I ordered a BMP and Mag for the AM since he was started on HCTZ/Triamterene earlier this week for uncontrolled HTN. the MRI did not show an acute CVA. He had a TIA. If no change in the neurochecks in the next 12 hours I will take him back on rehab. Plan on getting a 30 day event monitor at [place] from rehab.
[2021-03-17] MEDS: Ipratropium/Albuterol Sulfate 3 ML AMPUL.NEB INHALATION (20:16)
[2021-03-17] MEDS: Atorvastatin Calcium 40 MG Tablet PO (21:08)
[2021-03-17] MEDS: Gabapentin 600 MG Tablet PO (21:09)
[2021-03-17] MEDS: Metoprolol Tartrate 25 MG Tablet PO (21:09)
[2021-03-17] MEDS: lamoTRIgine 100 MG Tablet PO (21:09)
[2021-03-17] MEDS: Heparin Injection (Vial) 5,000 UNIT/ML VIAL 5000 UNIT SC (21:10)
[2021-03-17 21:20] LABS: Bedside Glucose 87 mg/dL (70-110)
[2021-03-18] VITALS (8 sets, daily range): BP systolic 128–154; BP diastolic 60–92; PULSE 55–79; RESP 14–18; TEMP 36.4–36.8; O2SAT 93–97; BMI 33.0
[2021-03-18] MEDS: OXcarbazepine 600 MG Tablet PO ×2 (06:35→13:42)
[2021-03-18 06:38] LABS: Anion Gap 7 (5-15); BUN 34 mg/dL (7-18); BUN/Creat Ratio 26.4 RATIO (10-20); Calcium,Total 9.4 mg/dL (8.5-10.1); Chloride 91 mmol/L (98-107); Creatinine, Serum 1.29 mg/dL (0.70-1.30); EST Glomerular Filtration Rate 61 mL/min (>60); Est Glom Filt Rate - Afr Amer 74 mL/min (>60); Glucose 101 mg/dL (74-106); Potassium 4.6 mmol/L (3.5-5.1); Sodium Level 124 mmol/L (136-145)
[2021-03-18 06:41] LABS: Bedside Glucose 118 mg/dL (70-110)
[2021-03-18] MEDS: Ipratropium/Albuterol Sulfate 3 ML AMPUL.NEB INHALATION ×2 (07:12→13:04)
[2021-03-18] MEDS: Metoprolol Tartrate 25 MG Tablet PO (08:19)
[2021-03-18] MEDS: Glimepiride 4 MG Tablet 8 MG PO (08:19)
[2021-03-18] MEDS: amLODIPine 10 MG Tablet PO (08:20)
[2021-03-18] MEDS: lamoTRIgine 100 MG Tablet PO (08:20)
[2021-03-18] MEDS: Lisinopril 40 MG Tablet PO (08:20)
[2021-03-18] MEDS: Aspirin 81 MG TAB.CHEW PO (08:21)
[2021-03-18] MEDS: Pioglitazone Hydrochloride 30 MG Tablet PO (08:21)
[2021-03-18] MEDS: Gabapentin 600 MG Tablet PO (08:21)
[2021-03-18] MEDS: Tamsulosin HCl 0.4 MG Capsule PO (08:21)
[2021-03-18] MEDS: Heparin Injection (Vial) 5,000 UNIT/ML VIAL 5000 UNIT SC (08:22)
[2021-03-18] MEDS: Clopidogrel Bisulfate 75 MG Tablet PO (08:22)
[2021-03-18] MEDS: metFORMIN HCl 1,000 MG Tablet 1000 MG PO (08:28)
--- NOTE | 2021-03-18 09:12 | CDU_ITS ---
Reason For Study: Abnormal CTA Rt. Velocities/BP Lt. Velocities/BP Prox CCA 127/15 cm/sec. Prox CCA 93/0 cm/sec. Mid CCA 87/12 cm/sec. Mid CCA 81/4 cm/sec. Dist CCA 92/10 cm/sec. Dist CCA 63/7 cm/sec. Prox ICA 147/39 cm/sec. Prox ICA 70/0 cm/sec. Mid ICA 141/21 cm/sec. Mid ICA 48/8 cm/sec. Dist ICA 112/23 cm/sec. Dist ICA 36/7 cm/sec. Rt. ICA/CCA = 1.7. Lt. ICA/CCA = 0.9. Prox ECA 97/14 cm/sec. Prox ECA 210/9 cm/sec. Rt. Vert. 18 cm/sec. Lt. Vert. 53/15 cm/sec. Right Extracranial There is homogeneous, smooth atherosclerotic plaque noted in the right common carotid artery. There is heterogeneous, smooth atherosclerotic plaque noted in the right internal carotid artery. There is heterogeneous, irregular atherosclerotic plaque noted in the right external carotid artery. Antegrade flow is noted in the right vertebral artery. Left Extracranial There is heterogeneous, irregular atherosclerotic plaque noted in the left common carotid artery. There is heterogeneous, smooth atherosclerotic plaque noted in the left internal carotid artery. There is heterogeneous, irregular atherosclerotic plaque noted in the left external carotid artery. Antegrade flow is noted in the left vertebral artery. Procedure Carotid Duplex 23210. This is a Carotid Duplex examination using B-mode, color flow and specral Doppler. Exam performed portable in patient room. VL/Carotid Duplex Ultrasound Interpretation Summary Smooth heterogenous plaque at the proximal right internal carotid artery with 5 0 to 69% stenosis. Less than 50% stenosis right external carotid artery Diminished antegrade velocity of the right vertebral at 18 cm second flow Smooth heterogenous plaque at the proximal left internal carotid artery with le ss than 50% stenosis. Greater than 50% stenosis left external carotid artery Patent and antegrade left vertebral Ordering Physician: Mark Rangel Performed By: Kenzie Kern RDCS, RVT
--- NOTE | 2021-03-18 10:04 | TREXTCAR_ITS ---
Diet 03/17/21 11:13 Diet: Cardiac: Calorie-Controlled Food consistency:: Regular Liquid Consistency:: Regular/Thin Is pt able to select menu?: Yes How many daily calories?: 1800 calorie Therapies Weight Bearing: Full weight bearing Physical Therapy: Eval and Treat Occupational Therapy: Eval and Treat Speech Therapy: Eval and Treat Problem/Diagnosis (1) Stroke-like symptoms: Status: Acute Allergies/Procedures Done in Hospital Allergies Penicillins Allergy (Verified 03/10/21 23:56) Rash Type of Care/Length of Stay Estimated LOS: Convalescent Care Less Than 30 days Type of Care Needed: Skilled Rehab Potential: Good Prognosis: Good Additional Orders/Day of Discharge Day of Discharge: 03/18/21 Dietary and Speech Recommendations Speech Linguistic Eval Summary: Oriented to self, , place, situation. Patient is able to follow simple commands throughout assessment. Verbal expression: Confrontation namin/10 increasing to 8/10 with sentence completion cues and 10/10 with initial phoneme cues. Divergent naming (concrete category): 4 items (1 additional incorrect item) in 60 seconds. Patient continues with moderate dysarthria characterized by slowed rate, imprecise articulation, low volume in simple conversational exchanges with [employer]. He presented with 7 instances of anomia in conversation. He appeared to have apraxia of speech as he had groping of speech and inconsistent articulation errors. Would recommend further assessment of speech production in upcoming sessions. Discharge Plan Admission Admit Date/Time: 03/17/21 11:00 Primary Reason for Your Visit: Stroke like symptoms. Attending Provider: Mark Rangel Discharge Orders/Prescriptions Prescriptions: Continued atorvastatin 40 mg Tablet 40 mg PO QHS RF: 0 gabapentin 600 mg Tablet 600 mg PO BID RF: 0 albuterol sulfate 2.5 mg /3 mL (0.083 %) Solution For Nebulization 2.5 mg INHALATION Q6H PRN (Reason: Wheezing) RF: 0 clonidine 0.2 mg/24 hr Patch Weekly 1 patch TRANSDERMAL QWEEK RF: 0 clobetasol 0.05 % Cream 1 applic TOPICAL BID RF: 0 clopidogrel 75 mg Tablet 75 mg PO DAILY RF: 0 amlodipine 10 mg Tablet 10 mg PO DAILY RF: 0 metformin 1,000 mg Tablet 1,000 mg PO BIDCM RF: 0 glimepiride 4 mg Tablet 8 mg PO BREAKFAST RF: 0 albuterol sulfate [Proventil HFA] 90 mcg/actuation Hfa Aerosol Inhaler 2 puff INHALATION Q4H PRN PRN (Reason: Wheezing) RF: 0 lisinopril 40 mg Tablet 40 mg PO DAILY RF: 0 lamotrigine 100 mg Tablet 100 mg PO BID RF: 0 cyclobenzaprine 5 mg Tablet 5 mg PO QHS PRN (Reason: Muscle Spasm) RF: 0 metoprolol tartrate 25 mg Tablet 25 mg PO BID RF: 0 insulin glargine 100 unit/mL (3 mL) Insulin Pen 30 unit SUBCUT DAILY RF: 0 aspirin 81 mg Capsule 81 mg PO DAILY RF: 0 tamsulosin [Flomax] 0.4 mg Capsule 0.4 mg PO DAILY RF: 0 nicotine 21 mg/24 hr Patch 24 Hour 1 patch TRANSDERMAL DAILY RF: 0 oxcarbazepine [Trileptal] 600 mg Tablet 600 mg PO TID RF: 0 pioglitazone [Actos] 30 mg Tablet 30 mg PO DAILY RF: 0 Referrals / Follow Up: [facility] [Other] - Within 2 Weeks Disposition Disposition (needs filled in before D/C Order can be placed): [facility]
[2021-03-18] MEDS: 0.9% Normal Saline 1,000 ML 500 ML IV (11:05)
[2021-03-18] MEDS: 0.9% Normal Saline 1,000 ML 125 ML IV (11:06)
[2021-03-18 11:20] LABS: Bedside Glucose 153 mg/dL (70-110)
--- NOTE | 2021-03-18 13:37 | NURSING ---
Report called to rehab Gregoria GARCIA brother was called and is aware .
--- NOTE | 2021-03-18 14:31 | DS.PCM_ITS ---
Documented by User: Mak KNOX 03/18/21 14:40 Providers Date of Admission: 03/17/21 Primary Care Physician: EDD SRIVASTAVA Reason For Visit: STROKE LIKE SYMPTOMS Diagnosis Discharge Diagnosis (1) Stroke-like symptoms: Status: Acute Code(s): R29.90 - Unspecified symptoms and signs involving the nervous system Medications at Discharge Home Medications albuterol sulfate 2.5 mg INHALATION Q6H PRN 03/11/21 albuterol sulfate [Proventil HFA] 2 puff INHALATION Q4H PRN PRN 03/11/21 amlodipine 10 mg PO DAILY 03/11/21 aspirin 81 mg PO DAILY 03/11/21 atorvastatin 40 mg PO QHS 03/11/21 clobetasol 1 applic TOPICAL BID 03/11/21 clonidine 1 patch TRANSDERMAL QWEEK 03/11/21 clopidogrel 75 mg PO DAILY 03/11/21 cyclobenzaprine 5 mg PO QHS PRN 03/11/21 gabapentin 600 mg PO BID 03/11/21 glimepiride 8 mg PO BREAKFAST 03/11/21 insulin glargine 30 unit SUBCUT DAILY 03/11/21 lamotrigine 100 mg PO BID 03/11/21 lisinopril 40 mg PO DAILY 03/11/21 metformin 1,000 mg PO BIDCM 03/11/21 metoprolol tartrate 25 mg PO BID 03/11/21 nicotine 1 patch TRANSDERMAL DAILY 03/11/21 oxcarbazepine [Trileptal] 600 mg PO TID 03/11/21 pioglitazone [Actos] 30 mg PO DAILY 03/11/21 tamsulosin [Flomax] 0.4 mg PO DAILY 03/11/21 Hospital Course Summary of Care Provided Minutes Spent on Discharge: 20 Hospital Course: Patient is a 56-year-old male who was admitted to [facility] from the rehab unit on 03/17/2021 for evaluation and management of strokelike symptoms. Course of management as below. 1) strokelike symptoms Patient was observed having dysarthria, right-sided facial weakness and aphasia in the rehab unit, physician at rehab unit obtained a NIHSS of 5. According to patient symptoms observed in TCU appear to be chronic in nature. Brain MRI did not demonstrate any evidence of acute ischemia or infarction. Carotid duplex ultrasound obtained, results as above, no severe stenosis noted. Patient will discharge back to rehab for ongoing care. 2) hypertensive emergency Resolved, patient was stable throughout admission. 3) DM2 Home diabetic regimen continued. 4) seizure history Does not appear to be in status. Continue Lamictal and Trileptal. Patient seen by Mak Hopkins PA-C, under the supervision of Dr. Rangel. Time spent on patient care: 20 minutes. Physical Exam Narrative Patient is a 56-year-old male comfortably lying in bed, alert and orient x3. Patient dysphagia and right-sided facial weakness appears stable from yesterday. Denies development of any new symptoms overnight. Does not appear in acute distress. Const alert, oriented x3 and no apparent distress HEENT normocephalic, head/scalp atraumatic and hearing grossly normal bilaterally Eyes PERRL, EOMs intact bilaterally and conjunctivae normal Neck no lymphadenopathy, supple and no JVD Resp normal respiratory effort, no retractions, no use of accessory muscles and clear to auscultation bilaterally Cardio regular rate, regular rhythm, no murmurs and no JVD GI normal to inspection, nondistended, normoactive bowel sounds, soft to palpation and non-tender Extremity normal to inspection, full ROM and no clubbing, cyanosis or edema Skin no rashes or lesions noted, no wounds and skin turgor normal Neuro Neuro Narrative: Chronic focal deficits appear stable, no new or worsening focal neurological deficite noted. Psych affect normal Weight / BMI Weight Weight: 236 lb 8.896 oz Body Mass Index (BMI) 33.0 ABG / Lab / Microbiology Data Result Diagrams: 03/18/21 05:31 03/18/21 05:31 Laboratory: Laboratory Results - last 24 hr 03/17/21 16:12: POC Glucose 131 H 03/17/21 21:06: POC Glucose 87 03/18/21 05:31: Sodium 124 L, Potassium 4.6, Chloride 91 L, Carbon Dioxide 26.0, Anion Gap 7, BUN 34 H, Creatinine 1.29, Estim Creat Clear Calc 68.10, Est GFR (MDRD) Af Amer 74, Est GFR (MDRD) Non-Af 61, BUN/Creatinine Ratio 26.4 H, Glucose 101, Calcium 9.4, Magnesium 2.0 03/18/21 06:34: POC Glucose 118 H 03/18/21 11:11: POC Glucose 153 H Radiography Diagnostic Testing: Radiology Impression Carotid Duplex 03/18/21 09:12 Interpretation Summary Smooth heterogenous plaque at the proximal right internal carotid artery with 50 to 69% stenosis. Less than 50% stenosis right external carotid artery Diminished antegrade velocity of the right vertebral at 18 cm second flow Smooth heterogenous plaque at the proximal left internal carotid artery with less than 50% stenosis. Greater than 50% stenosis left external carotid artery Patent and antegrade left vertebral Ordering Physician: Mark Rangel Performed By: Kenzie Kern, SOLITARIO, RVT Meaningful Use Info Meaningful Use Diagnoses (Choose all that apply): None applicable Discharge Plan Admission Admit Date/Time: 03/17/21 11:00 Primary Reason for Your Visit: Stroke like symptoms. Attending Provider: Mark Rangel Discharge Orders/Prescriptions Prescriptions: Continued atorvastatin 40 mg Tablet 40 mg PO QHS RF: 0 gabapentin 600 mg Tablet 600 mg PO BID RF: 0 albuterol sulfate 2.5 mg /3 mL (0.083 %) Solution For Nebulization 2.5 mg INHALATION Q6H PRN (Reason: Wheezing) RF: 0 clonidine 0.2 mg/24 hr Patch Weekly 1 patch TRANSDERMAL QWEEK RF: 0 clobetasol 0.05 % Cream 1 applic TOPICAL BID RF: 0 clopidogrel 75 mg Tablet 75 mg PO DAILY RF: 0 amlodipine 10 mg Tablet 10 mg PO DAILY RF: 0 metformin 1,000 mg Tablet 1,000 mg PO BIDCM RF: 0 glimepiride 4 mg Tablet 8 mg PO BREAKFAST RF: 0 albuterol sulfate [Proventil HFA] 90 mcg/actuation Hfa Aerosol Inhaler 2 puff INHALATION Q4H PRN PRN (Reason: Wheezing) RF: 0 lisinopril 40 mg Tablet 40 mg PO DAILY RF: 0 lamotrigine 100 mg Tablet 100 mg PO BID RF: 0 cyclobenzaprine 5 mg Tablet 5 mg PO QHS PRN (Reason: Muscle Spasm) RF: 0 metoprolol tartrate 25 mg Tablet 25 mg PO BID RF: 0 insulin glargine 100 unit/mL (3 mL) Insulin Pen 30 unit SUBCUT DAILY RF: 0 aspirin 81 mg Capsule 81 mg PO DAILY RF: 0 tamsulosin [Flomax] 0.4 mg Capsule 0.4 mg PO DAILY RF: 0 nicotine 21 mg/24 hr Patch 24 Hour 1 patch TRANSDERMAL DAILY RF: 0 oxcarbazepine [Trileptal] 600 mg Tablet 600 mg PO TID RF: 0 pioglitazone [Actos] 30 mg Tablet 30 mg PO DAILY RF: 0 Referrals / Follow Up: EDD SRIVASTAVA [Other] - Within 2 Weeks Disposition Disposition (needs filled in before D/C Order can be placed): Nursing Home Facility Documented by User: Dr. Mark Rangel DO 03/18/21 17:24 Providers Date of Admission: 03/17/21 Reason For Visit: STROKE LIKE SYMPTOMS Medications at Discharge Home Medications albuterol sulfate 2.5 mg INHALATION Q6H PRN 03/11/21 albuterol sulfate [Proventil HFA] 2 puff INHALATION Q4H PRN PRN 03/11/21 amlodipine 10 mg PO DAILY 03/11/21 aspirin 81 mg PO DAILY 03/11/21 atorvastatin 40 mg PO QHS 03/11/21 clobetasol 1 applic TOPICAL BID 03/11/21 clonidine 1 patch TRANSDERMAL QWEEK 03/11/21 clopidogrel 75 mg PO DAILY 03/11/21 cyclobenzaprine 5 mg PO QHS PRN 03/11/21 gabapentin 600 mg PO BID 03/11/21 glimepiride 8 mg PO BREAKFAST 03/11/21 insulin glargine 30 unit SUBCUT DAILY 03/11/21 lamotrigine 100 mg PO BID 03/11/21 lisinopril 40 mg PO DAILY 03/11/21 metformin 1,000 mg PO BIDCM 03/11/21 metoprolol tartrate 25 mg PO BID 03/11/21 nicotine 1 patch TRANSDERMAL DAILY 03/11/21 oxcarbazepine [Trileptal] 600 mg PO TID 03/11/21 pioglitazone [Actos] 30 mg PO DAILY 03/11/21 tamsulosin [Flomax] 0.4 mg PO DAILY 03/11/21 ABG / Lab / Microbiology Data Result Diagrams: 03/18/21 05:31 03/18/21 05:31 Discharge Plan Admission Admit Date/Time: 03/17/21 11:00 Primary Reason for Your Visit: Stroke like symptoms. Attending Provider: Mark Rangel Discharge Orders/Prescriptions Prescriptions: Continued atorvastatin 40 mg Tablet 40 mg PO QHS RF: 0 gabapentin 600 mg Tablet 600 mg PO BID RF: 0 albuterol sulfate 2.5 mg /3 mL (0.083 %) Solution For Nebulization 2.5 mg INHALATION Q6H PRN (Reason: Wheezing) RF: 0 clonidine 0.2 mg/24 hr Patch Weekly 1 patch TRANSDERMAL QWEEK RF: 0 clobetasol 0.05 % Cream 1 applic TOPICAL BID RF: 0 clopidogrel 75 mg Tablet 75 mg PO DAILY RF: 0 amlodipine 10 mg Tablet 10 mg PO DAILY RF: 0 metformin 1,000 mg Tablet 1,000 mg PO BIDCM RF: 0 glimepiride 4 mg Tablet 8 mg PO BREAKFAST RF: 0 albuterol sulfate [Proventil HFA] 90 mcg/actuation Hfa Aerosol Inhaler 2 puff INHALATION Q4H PRN PRN (Reason: Wheezing) RF: 0 lisinopril 40 mg Tablet 40 mg PO DAILY RF: 0 lamotrigine 100 mg Tablet 100 mg PO BID RF: 0 cyclobenzaprine 5 mg Tablet 5 mg PO QHS PRN (Reason: Muscle Spasm) RF: 0 metoprolol tartrate 25 mg Tablet 25 mg PO BID RF: 0 insulin glargine 100 unit/mL (3 mL) Insulin Pen 30 unit SUBCUT DAILY RF: 0 aspirin 81 mg Capsule 81 mg PO DAILY RF: 0 tamsulosin [Flomax] 0.4 mg Capsule 0.4 mg PO DAILY RF: 0 nicotine 21 mg/24 hr Patch 24 Hour 1 patch TRANSDERMAL DAILY RF: 0 oxcarbazepine [Trileptal] 600 mg Tablet 600 mg PO TID RF: 0 pioglitazone [Actos] 30 mg Tablet 30 mg PO DAILY RF: 0 Referrals / Follow Up: EDD SRIVASTAVA [Other] - Within 2 Weeks Disposition Disposition (needs filled in before D/C Order can be placed): Nursing Home Facility Charges/Coding Addendum Addendum: Seen and examined today independently of Mak Hopkins, his MRI yesterday was negative for acute stroke, his blood pressure is better controlled today. I think he can return to inpatient rehab services at [facility]. I had a carotid ultrasound performed on the patient due to concerns of severe right carotid stenosis on his CTA, the carotid ultrasound did not show severe stenosis of this vessel. On examination he appeared older than his stated age. Vital signs as documented. Skin warm and dry and without overt rashes. Neck without JVD, neck was supple, trachea midline, thyroid was normal. Lungs clear bilaterally, normal air mov ement was noted. Heart exam notable for regular rhythm, normal sounds and absence of murmurs, rubs or gallops. Abdomen unremarkable and without evidence of organomegaly, masses, or abdominal aortic enlargement. Bowel sounds are present, abdomen is not distended. Extremities nonedematous, no cyanosis was noted, no clubbing was noted. Neuro: Cranial nerves II through XII are grossly intact, some right-sided weakness was noted in comparison to the left upper and lower extremity, patient had some dysarthria but I did not detect any expressive aphasia. Psych: Patient is alert and oriented x3, he does not appear anxious or depressed, he does not appear agitated. Impression: #1 dysarthria-etiology unclear #2 right-sided weakness-etiology unclear #3 cerebrovascular disease #4 essential hypertension #5 chronic obstructive pulmonary disease #6 carotid occlusive disease-not critical I have reviewed Mak Hopkins's discharge summary including his medical assessment and plan of care with the above additions endorse it. Total clinical time addressing the patient's medical issues reviewing all of his medical data, and collaboration with the patient's care team: 25 minutes Visit Charges OBSV E&M: 50249 Observation care discharge
== END 2021-03-18 10:10 ==
PROVIDERS: Internal Medicine; Admitting Provider Internal Medicine; Visit Provider Internal Medicine
DX: I16.1 Hypertensive emergency (principal); J44.9 Chronic obstructive pulmonary disease, unspecified; E11.9 Type 2 diabetes mellitus without complications; Z79.4 Long term (current) use of insulin; I10 Essential (primary) hypertension; I69.322 Dysarthria following cerebral infarction; F17.210 Nicotine dependence, cigarettes, uncomplicated; R11.10 Vomiting, unspecified; R29.810 Facial weakness; R47.81 Slurred speech; R47.01 Aphasia; N40.0 Benign prostatic hyperplasia without lower urinary tract symptoms; E78.5 Hyperlipidemia, unspecified; E66.9 Obesity, unspecified; Z68.33 Body mass index [BMI] 33.0-33.9, adult; Z79.899 Other long term (current) drug therapy; Z79.02 Long term (current) use of antithrombotics/antiplatelets; Z79.82 Long term (current) use of aspirin
CPT/HCPCS: G0379; 36415; 70551; 80048; 82962; 83735; 92507; 92523; 92526; 92610; 93880; 94640; 96360; 96361; 96372; 97162; 97166; 99218; 99406; J7030; J7040; G0378